=== PATIENT | male | born 1990 | race American Indian/Alaskan Native ===

== ENCOUNTER 2016-09-26 22:29 | Emergency (ER) | payer MEDICAID ==
[2016-09-26 23:04] LABS: Bilirubin,Urine NEG (Negative)
[2016-09-26 23:05] LABS: Blood,Urine SM (Negative); Ketones,Urine TR mg/dL (Negative); Leukocyte Esterase,Urine NEG (Negative); Mucus,Urine FEW /HPF; Nitrite,Urine NEG (Negative); Protein,Urine <15 mg/dL mg/dL (Negative)
--- NOTE | 2016-09-26 23:21 | Ultrasound Report ---
FINAL REPORT PROCEDURE: US TESTICULAR DOPPLER COMP TECHNIQUE: Real-time perez-scale and color flow Doppler sonography in multiple planes of the scrotum, testicles, and epididymes was performed. Velocity spectral waveform analysis Doppler imaging of the arterial inflow and venous outflow of the testicles was performed with image documentation. CPT 69413 and 36336 HISTORY: testicular pain COMPARISON: May 18, 2016 FINDINGS: RIGHT TESTICLE: Size: 3.9 x 2.5 x 1.7 cm . Appearance: Normal size and echotexture . Arterial blood flow: Normal spectral waveforms, flow velocities and color flow images.. Venous blood flow: Normal spectral waveforms and color flow images. Right epididymis: Normal size and echotexture . Hydrocele: None . LEFT TESTICLE Size: 3.9 x 2.7 x 1.7 cm . Appearance: Normal size and echotexture . Arterial blood flow: Normal spectral waveforms, flow velocities and color flow images.. Venous blood flow: Normal spectral waveforms and color flow images. Leftepididymis: Normal size and echotexture . Hydrocele: None . IMPRESSION: Normal Examination
--- NOTE | 2016-09-27 02:30 | Emergency Department Report ---
ED Male HPI - General Chief complaint: Urogenital-Male Stated complaint: TESTICULAR PAIN/INJURY Time Seen by Provider: 09/27/16 01:43 Source: patient Mode of arrival: Ambulatory Limitations: No Limitations - History of Present Illness Initial comments: 26 y/o male complain of itching and burning to penis .pt state he has a rash on his penis .pt denies any testicular pain.pt denies any difficulty urinate . Onset/Timin -: days(s) Location: penis Radiation: none Severity: mild Severity scale (0 -10): 4 Quality: burning Improves with: none Worsens with: none - Related Data Previous Rx's Medication Instructions Recorded Last Taken Type Doxycycline Hyclate [Doxycycline 100 mg PO Q12HR #14 tab 05/08/16 Unknown Rx Hyclate TAB] HYDROcodone/APAP 7.5-325 [[place] 1 each PO Q8HR PRN #10 tablet 05/08/16 Unknown Rx 7.5-325 mg TAB] traMADol [Ultram 50 MG tab] 50 mg PO Q6HR PRN #10 tablet 05/18/16 Unknown Rx Nystatin Oint [Mycostatin Oint] 1 applicatio TP BID #1 tube 09/27/16 Unknown Rx Allergies Allergy/AdvReac Type Severity Reaction Status Date / Time No Known Allergies Allergy Verified 03/14/14 14:59 ED Review of Systems ROS: Stated complaint: TESTICULAR PAIN/INJURY Other details as noted in HPI Constitutional: denies: chills, fever Eyes: denies: eye pain, eye discharge, vision change ENT: denies: ear pain, throat pain Respiratory: denies: cough, shortness of breath, wheezing Cardiovascular: denies: chest pain, palpitations Endocrine: no symptoms reported Gastrointestinal: denies: abdominal pain, nausea, diarrhea Genitourinary: other (penile pain). denies: urgency, dysuria Musculoskeletal: denies: back pain, joint swelling, arthralgia Skin: rash. denies: lesions Neurological: denies: headache, weakness, paresthesias Psychiatric: denies: anxiety, depression Hematological/Lymphatic: denies: easy bleeding, easy bruising ED Past Medical Hx - Social History Smoking Status: Current Every Day Smoker Substance Use Type: None - Medications Home Medications: Home Medications Medication Instructions Recorded Confirmed Last Taken Type Doxycycline Hyclate [Doxycycline 100 mg PO Q12HR #14 tab 05/08/16 Unknown Rx Hyclate TAB] HYDROcodone/APAP 7.5-325 [[place] 1 each PO Q8HR PRN #10 tablet 05/08/16 Unknown Rx 7.5-325 mg TAB] traMADol [Ultram 50 MG tab] 50 mg PO Q6HR PRN #10 tablet 05/18/16 Unknown Rx Nystatin Oint [Mycostatin Oint] 1 applicatio TP BID #1 tube 09/27/16 Unknown Rx ED Physical Exam - General Limitations: No Limitations General appearance: alert, in no apparent distress - Head Head exam: Present: atraumatic, normocephalic - Eye Eye exam: Present: normal appearance - ENT ENT exam: Present: mucous membranes moist - Neck Neck exam: Present: normal inspection - Respiratory Respiratory exam: Present: normal lung sounds bilaterally. Absent: respiratory distress - Cardiovascular Cardiovascular Exam: Present: regular rate, normal rhythm. Absent: systolic murmur, diastolic murmur, rubs, gallop - GI/Abdominal GI/Abdominal exam: Present: soft, normal bowel sounds - Rectal Rectal exam: Present: deferred - exam: Present: circumcision. Absent: testicular tenderness, urethral discharge, scrotal swelling, vertical testicular lie External exam: Present: erythema - Expanded Exam Expanded Male exam: Present: balanitis - Extremities Exam Extremities exam: Present: normal inspection, full ROM - Back Exam Back exam: Present: normal inspection - Neurological Exam Neurological exam: Present: alert, oriented X3 - Psychiatric Psychiatric exam: Present: normal affect, normal mood - Skin Skin exam: Present: warm, dry, intact, normal color. Absent: rash ED Course Vital Signs 09/26/16 22:34 Temperature 97.4 F L Pulse Rate 77 Respiratory 18 Rate Blood Pressure 139/80 O2 Sat by Pulse 99 Oximetry ED Medical Decision Making - Medical Decision Making balanitis negative ultrasound of testicle Critical care attestation.: If time is entered above; I have spent that time in minutes in the direct care of this critically ill patient, excluding procedure time. ED Disposition Clinical Impression: Balanitis Disposition: DISCHARGED TO HOME OR SELFCARE Is pt being admited?: No Does the pt Need Aspirin: No Condition: Stable Instructions: Balanitis (ED) Additional Instructions: keep penis clean and dry Prescriptions: Nystatin Oint [Mycostatin Oint] 1 applicatio TP BID #1 tube Referrals: PRIMARY CARE, [Primary Care Provider] - 3-5 Days [facility] [Outside] - 3-5 Days Forms: Work/School Release Form(ED) Time of Disposition: 02:36
[2016-09-27 02:51] VITALS: BP 132/77
== END 2016-09-27 02:56 | disposition home or self-care (01) ==
LOC: ED 22:29
DX: N48.1 Balanitis (principal); F17.200 Nicotine dependence, unspecified, uncomplicated
CPT/HCPCS: 81001; 93975

== ENCOUNTER 2016-10-29 14:22 | Emergency (ER) | payer MEDICAID ==
--- NOTE | 2016-10-29 17:01 | Emergency Department Report ---
ED Male HPI - General Chief complaint: Urogenital-Male Stated complaint: URINATION PENIS Time Seen by Provider: 10/29/16 16:58 Source: patient, family Mode of arrival: Ambulatory Limitations: No Limitations - History of Present Illness Initial comments: Patient here reports that he has pain to the shaft of his penis for couple days. He reports painful urination. She reports to us in triage that he had discharged denies any penile discharge to me. Patient denies any rash. Denies any testicular pain. Denies any abdominal or back pain. Denies any nausea vomiting. Sent said that he is not concerned about STD. Having a lot of sex. Denies any blood in his urine. Denies any abdominal or back pain. MD Complaint: other (penis pain) Onset/Timin -: days(s) Location: penis Radiation: none Severity: moderate Severity scale (0 -10): 7 Quality: burning Improves with: rest Worsens with: palpation, movement dysuria, other (sore to shaft of penis). denies: discharge, swelling, mass, rash, urinary retention, blood in urine, fever, nausea/vomiting, incontinence - Related Data Sexually active: Yes (reports he always uses condoms) Previous Rx's Medication Instructions Recorded Last Taken Type HYDROcodone/APAP 7.5-325 [[place] 1 each PO Q8HR PRN #10 tablet 05/08/16 Unknown Rx 7.5-325 mg TAB] Nystatin Oint [Mycostatin Oint] 1 applicatio TP BID #1 tube 09/27/16 Unknown Rx Doxycycline Hyclate [Doxycycline 100 mg PO Q12HR #14 tab 10/29/16 Unknown Rx Hyclate TAB] traMADol [Ultram 50 MG tab] 50 mg PO Q6HR PRN #10 tablet 10/29/16 Unknown Rx Allergies Allergy/AdvReac Type Severity Reaction Status Date / Time No Known Allergies Allergy Verified 03/14/14 14:59 ED Review of Systems ROS: Stated complaint: URINATION PENIS Other details as noted in HPI Comment: All other systems reviewed and negative Constitutional: denies: chills, fever ENT: denies: throat pain Respiratory: no symptoms reported Cardiovascular: denies: chest pain, palpitations, edema, syncope Gastrointestinal: denies: abdominal pain, nausea, vomiting Musculoskeletal: denies: back pain, arthralgia Skin: other (reports last penis) Neurological: denies: headache, weakness, numbness, paresthesias, abnormal gait , vertigo ED Past Medical Hx - Past Medical History Previous Medical History?: No - Surgical History Past Surgical History?: No - Family History Family history: no significant - Social History Smoking Status: Current Every Day Smoker Substance Use Type: Alcohol - Medications Home Medications: Home Medications Medication Instructions Recorded Confirmed Last Taken Type HYDROcodone/APAP 7.5-325 [[place] 1 each PO Q8HR PRN #10 tablet 05/08/16 Unknown Rx 7.5-325 mg TAB] Nystatin Oint [Mycostatin Oint] 1 applicatio TP BID #1 tube 09/27/16 Unknown Rx Doxycycline Hyclate [Doxycycline 100 mg PO Q12HR #14 tab 10/29/16 Unknown Rx Hyclate TAB] traMADol [Ultram 50 MG tab] 50 mg PO Q6HR PRN #10 tablet 10/29/16 Unknown Rx ED Physical Exam - General Limitations: No Limitations General appearance: alert, in no apparent distress - Head Head exam: Present: atraumatic, normocephalic, normal inspection - ENT ENT exam: Present: normal exam, normal orophraynx, mucous membranes moist, TM's normal bilaterally, normal external ear exam - Neck Neck exam: Present: normal inspection, full ROM. Absent: tenderness, meningismus, lymphadenopathy - Respiratory Respiratory exam: Present: normal lung sounds bilaterally. Absent: respiratory distress, chest wall tenderness - Cardiovascular Cardiovascular Exam: Present: regular rate, normal rhythm, normal heart sounds - GI/Abdominal GI/Abdominal exam: Present: soft, normal bowel sounds. Absent: distended, tenderness, guarding, rebound, rigid - exam: Present: normal inspection, circumcision. Absent: testicular tenderness, urethral discharge, scrotal swelling, vertical testicular lie External exam: Present: erythema (noted erythema area to posterior mid shaft of penis. Patient blood abrasion.). Absent: swelling, lesions, lacerations, ecchymosis, bleeding - Extremities Exam Extremities exam: Present: normal inspection, full ROM, normal capillary refill. Absent: tenderness, pedal edema, joint swelling, calf tenderness - Back Exam Back exam: Present: normal inspection, full ROM. Absent: tenderness, CVA tenderness (R), CVA tenderness (L), muscle spasm, paraspinal tenderness, vertebral tenderness, rash noted - Neurological Exam Neurological exam: Present: alert, oriented X3, normal gait, reflexes normal. Absent: motor sensory deficit - Psychiatric Psychiatric exam: Present: normal affect, normal mood - Skin Skin exam: Present: warm, dry, intact, normal color, abrasion (small abrasion noted of the posterior shaft of mid penis.) ED Course Vital Signs 10/29/16 14:35 Temperature 99.0 F Pulse Rate 72 Respiratory 16 Rate Blood Pressure 112/67 O2 Sat by Pulse 100 Oximetry - Reevaluation(s) Reevaluation #1: 10/29/16 18:14 Patient says his tetanus shot is up-to-date less than 5 years. ED Medical Decision Making - Lab Data Lab Results 10/29/16 Range/Units 17:27 Urine Color Straw (Yellow) Urine Turbidity Clear (Clear) Urine pH 6.0 (5.0-7.0) Ur Specific [place] 1.010 (1.003-1.030) Urine Protein <15 mg/dl (Negative) mg/dL Urine Glucose (UA) Neg (Negative) mg/dL Urine Ketones Neg (Negative) mg/dL Urine Blood Neg (Negative) Urine Nitrite Neg (Negative) Urine Bilirubin Neg (Negative) Urine Urobilinogen < 2.0 (<2.0) mg/dL Ur Leukocyte Esterase Neg (Negative) Urine WBC (Auto) < 1.0 (0.0-6.0) /HPF Urine RBC (Auto) < 1.0 (0.0-6.0) /HPF Culture pending - Medical Decision Making ED course: I explained to patient that he has an abrasion to his penis and he' ll need to keep area clean and dry. Patient did not want any STD treatment or testing because He said he does not have any STDs. Urinalysis negative for bacteria. Cultures pending. Patient discharged home with prescription for Keflex and to follow up with his primary care physician in 3 days. Patient does not have a primary care physician so I told him he needs to follow[facility] with [facility]. Critical care attestation.: If time is entered above; I have spent that time in minutes in the direct care of this critically ill patient, excluding procedure time. ED Disposition Clinical Impression: Penile abrasion Qualifiers: Encounter type: initial encounter Qualified Code(s): S30.812A - Abrasion of penis, initial encounter Disposition: DISCHARGED TO HOME OR SELFCARE Is pt being admited?: No Does the pt Need Aspirin: No Condition: Stable Instructions: Abrasion (ED) Additional Instructions: Please do not have any sex until abrasion on penis is healed Prescriptions: Doxycycline Hyclate [Doxycycline Hyclate TAB] 100 mg PO Q12HR #14 tab traMADol [Ultram 50 MG tab] 50 mg PO Q6HR PRN #10 tablet PRN Reason: Pain Referrals: [facility] [Outside] - 3-5 Days Forms: Work/School Release Form(ED)
[2016-10-29 17:37] LABS: Bilirubin,Urine NEG (Negative); Blood,Urine NEG (Negative); Ketones,Urine NEG (Negative); Leukocyte Esterase,Urine NEG (Negative); Nitrite,Urine NEG (Negative); Protein,Urine <15 mg/dL mg/dL (Negative); RBC,Urine < 1.0 /HPF (0.0-6.0); Urobilinogen,Urine < 2.0 mg/dL (<2.0); WBC,Urine < 1.0 /HPF (0.0-6.0)
[2016-10-29 18:40] VITALS: BP 118/70
== END 2016-10-29 18:39 | disposition home or self-care (01) ==
LOC: ED 14:22
DX: S30.812A Abrasion of penis, initial encounter (principal); F17.200 Nicotine dependence, unspecified, uncomplicated; X58.XXXA Exposure to other specified factors, initial encounter; Y93.89 Activity, other specified; Y99.9 Unspecified external cause status; Y92.89 Other specified places as the place of occurrence of the external cause
CPT/HCPCS: 81001; 87086; 99283

== ENCOUNTER 2017-01-08 00:41 | Emergency (ER) | payer MEDICAID ==
[2017-01-08 01:01] VITALS: BP 133/78
[2017-01-08] MEDS ORDERED: MOTRIN PO ONE (04:11)
--- NOTE | 2017-01-08 04:44 | XRay Report ---
FINAL REPORT PROCEDURE: XR FEMUR 2 LT TECHNIQUE: LEFT femur radiographs, AP and lateral views. HISTORY: left thigh discomfort possible needle stick injury COMPARISON: No prior studies are available for comparison. FINDINGS: Fracture (s) and/or Dislocation(s): None . Joint space(s): Normal . Soft tissues: Normal . Bone mineralization: Normal . Foreign bodies: None . IMPRESSION: Normal Examination
--- NOTE | 2017-01-08 04:53 | Emergency Department Report ---
ED Extremity Problem HPI - General Chief complaint: Extremity Problem,Nontraumatic Stated complaint: POSSIABLE NEEDLE STICK IN LEG Time Seen by Provider: 01/08/17 03:59 Source: patient Mode of arrival: Ambulatory Limitations: No Limitations - History of Present Illness Initial comments: 26-year-old male past medical history? Psych disorder presents with complaint of left upper thigh pain. Patient states that he was sleeping in bed with a ex- girlfriend and he may have been stuck by an insulin needle in his left upper thigh 5 days ago. Patient denies any fevers no chills no difficulty ambulating states that he felt a prick sensation and left upper thigh and was concerned that he had been struck by one of her insulin needles. Patient denies actually seeing a needle in the bed. Also states that he felt very sore after playing soccer and that his thighs were feeling sore. Patient is awake and alert but has slightly flat affect. I asked patient if he is following up with a primary doctor or a psychiatrist and he denies. Patient is calm but has somewhat strange affect. Patient denies any auditory or visual hallucinations otherwise. Patient denies any drug use. Patient showing me the skin on his left thigh. No visible overt signs of infection or trauma. Patient is fully ambulatory without assistance. When asked the patient if he knows anything about the hepatitis or HIV status of the person who may have been involved with needlestick patient states that he is not aware. Patient denies any other symptoms is awake alert and oriented 3 MD Complaint: extremity pain Onset/Timin Location: left, lower extremity History of Same: No -: Yes myalgia Severity scale (0 -10): 2 Consistency: intermittent Improves with: nothing Worsens with: nothing Associated Symptoms: denies other symptoms - Related Data Previous Rx's Medication Instructions Recorded Last Taken Type Ibuprofen [Motrin] 400 mg PO Q8H PRN #25 tablet 01/08/17 Unknown Rx Allergies Allergy/AdvReac Type Severity Reaction Status Date / Time No Known Allergies Allergy Verified 03/14/14 14:59 ED Review of Systems ROS: Stated complaint: POSSIABLE NEEDLE STICK IN LEG Other details as noted in HPI Constitutional: denies: chills, fever Eyes: denies: eye pain, eye discharge, vision change ENT: denies: ear pain, throat pain Respiratory: denies: cough, shortness of breath, wheezing Cardiovascular: denies: chest pain, palpitations Endocrine: no symptoms reported Gastrointestinal: denies: abdominal pain, nausea, diarrhea Genitourinary: denies: urgency, dysuria Musculoskeletal: as per HPI. denies: back pain, joint swelling, arthralgia Skin: denies: rash, lesions Neurological: denies: headache, weakness, paresthesias Psychiatric: denies: anxiety, depression Hematological/Lymphatic: denies: easy bleeding, easy bruising ED Past Medical Hx - Past Medical History Previous Medical History?: No - Surgical History Past Surgical History?: No - Social History Smoking Status: Never Smoker Substance Use Type: Alcohol - Medications Home Medications: Home Medications Medication Instructions Recorded Confirmed Last Taken Type Ibuprofen [Motrin] 400 mg PO Q8H PRN #25 tablet 01/08/17 Unknown Rx ED Physical Exam - General Limitations: No Limitations General appearance: alert, in no apparent distress - Head Head exam: Present: atraumatic, normocephalic - Eye Eye exam: Present: normal appearance - ENT ENT exam: Present: mucous membranes moist - Neck Neck exam: Present: normal inspection - Respiratory Respiratory exam: Present: normal lung sounds bilaterally. Absent: respiratory distress - Cardiovascular Cardiovascular Exam: Present: regular rate, normal rhythm. Absent: systolic murmur, diastolic murmur, rubs, gallop - GI/Abdominal GI/Abdominal exam: Present: soft, normal bowel sounds - Rectal Rectal exam: Present: deferred - Extremities Exam Extremities exam: Present: normal inspection - Expanded Lower Extremity Exam Left Hip exam: Present: normal inspection, full ROM Upper Leg exam: Present: normal inspection (no abrasions no puncture wounds no lacerations no bruising no signs of acute trauma to left upper thigh region. Tissue is soft palpation overlying left thigh anteriorly and laterally and medially. No signs of induration or infection) Knee exam: Present: normal inspection, full ROM Lower Leg exam: Present: normal inspection, full ROM Ankle exam: Present: normal inspection, full ROM Foot/Toe exam: Present: normal inspection, full ROM Gait: Positive: observed and normal 1 - Patient indicating slight discomfort here but there are no abnormalities on clinical exam - Back Exam Back exam: Present: normal inspection - Neurological Exam Neurological exam: Present: alert, oriented X3, CN II-XII intact, normal gait - Psychiatric Psychiatric exam: Present: flat affect (patient has slightly flat and strange affect on exam) - Skin Skin exam: Present: warm, dry, intact, normal color. Absent: rash ED Course Vital Signs 01/08/17 00:57 Temperature 98.5 F Pulse Rate 69 Respiratory 18 Rate Blood Pressure 133/78 O2 Sat by Pulse 99 Oximetry ED Medical Decision Making - Medical Decision Making A/P: Left side pain, possible tactile hallucination, possible needle stick injury 1-I discussed likelihood of actual needle stick injury with the patient. Patient is unsure if he was actually stuck by a needle or if he just feels soreness in his left upper thigh from playing soccer. Patient has no visible signs of trauma to the left upper thigh region no puncture wounds no abrasions or lacerations no ecchymosis. I explained to patient that if he is truly concerned we can follow a needle stick protocol obtained lab work and started him prophylactically on post exposure prophylactic medicine for HIV. Patient stated he was not interested in doing this just wanted to know if he has a needle stuck in the tissue in his left upper thigh region. I explained to patient that clinically he has no signs of trauma. X-ray shows no foreign body. I explained to patient that with isolated needle stick he has extremely low probability of actually acquiring a communicable disease as per medical literature [email or web address]?source=search_result&search= needle%20stick%20injury&selectedTitle=3~47. I explained to pt that without PeP there is a minimal but possible risk of developing HIV. pt stated he understood what I explained to him but does not wish to have testing or pep at this time. 2-patient is awake alert and oriented nonviable and denies any intent to harm himself or anyone else. I am however suspicious the patient may have underlying psych disorder with possible tactile hallucination this is documented in his medical history as well. I offered the patient to speak to a psych counselor in the morning the patient states that he would rather not at this time. Patient is not overtly psychotic and is cooperative and calm and nonviolent. Denies any suicidal or homicidal ideation. 3-Motrin when necessary for pain. Patient elected to not use postexposure prophylaxis. I provided him with information for health department in the event that he changes his mind. It has been nearly 5 days since the initial supposed needle stick injury. 4- tetanus updated today 5- primary care follow up Critical care attestation.: If time is entered above; I have spent that time in minutes in the direct care of this critically ill patient, excluding procedure time. ED Disposition Clinical Impression: Left thigh pain Disposition: DISCHARGED TO HOME OR SELFCARE Is pt being admited?: No Does the pt Need Aspirin: No Condition: Stable Instructions: Musculoskeletal Pain (ED) Prescriptions: Ibuprofen [Motrin] 400 mg PO Q8H PRN #25 tablet PRN Reason: Pain Referrals: [facility] [Outside] - 3-5 Days [facility] [Outside] - 3-5 Days [facility] [Outside] - 3-5 Days [facility] [Outside] - 3-5 Days [facility] [Outside] - 3[facility]5 Days [facility] [Outside] - 3-5 Days Time of Disposition: 05:04
[2017-01-08] MEDS ORDERED: BOOSTRIX IM ONE (04:57)
== END 2017-01-08 05:21 | disposition home or self-care (01) ==
LOC: ED 00:41
DX: M79.652 Pain in left thigh (principal)
CPT/HCPCS: 90471; 90715

== ENCOUNTER 2017-01-14 03:44 | Emergency (ER) | payer MEDICAID ==
[2017-01-14 04:28] LABS: Basophils % (Auto) 0.2 % (0.0-1.8); Eosinophils % (Auto) 3.4 % (0.0-4.3); Hematocrit 41.2 % (35.5-45.6); Hemoglobin 13.3 gm/dl (11.8-15.2); Mean Corpuscular HGB Conc 32 % (32-34); Mean Corpuscular Hemoglobin 30 pg (28-32); Mean Corpuscular Volume 92 fl (84-94); Platelet Count 282 K/mm3 (140-440); Red Cell Distribution Width 12.2 % (13.2-15.2); White Blood Count 5.9 K/mm3 (4.5-11.0)
[2017-01-14 04:47] LABS: Anion Gap 15 mmol/L; Blood Urea Nitrogen 10 mg/dL (9-20); Calcium 8.9 mg/dL (8.4-10.2); Carbon Dioxide 25 mmol/L (22-30); Chloride 107.8 mmol/L (98-107); Glucose 123 mg/dL (75-100); Potassium 3.5 mmol/L (3.6-5.0); Sodium 144 mmol/L (137-145)
[2017-01-14 04:52] LABS: Bilirubin,Urine NEG (Negative); Blood,Urine SM (Negative); Ketones,Urine NEG (Negative); Leukocyte Esterase,Urine TR (Negative); Mucus,Urine 1+ /HPF; Nitrite,Urine NEG (Negative)
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
[2017-01-14 14:42] VITALS: BP 116/61
== END 2017-01-14 13:58 | disposition home or self-care (01) ==
LOC: ED 03:44
DX: N39.0 Urinary tract infection, site not specified (principal); M54.6 Pain in thoracic spine; F17.200 Nicotine dependence, unspecified, uncomplicated
CPT/HCPCS: 36415; 80048; 81001; 84484; 85025; 93005; 93010; 99284

== ENCOUNTER 2017-03-15 02:15 | Emergency (ER) | payer MEDICAID ==
[2017-03-15 06:06] LABS: Bilirubin,Urine NEG (Negative); Blood,Urine MOD (Negative); Ketones,Urine NEG (Negative); Leukocyte Esterase,Urine NEG (Negative); Mucus,Urine FEW /HPF; Nitrite,Urine NEG (Negative); Protein,Urine <15 mg/dL mg/dL (Negative); Urobilinogen,Urine < 2.0 mg/dL (<2.0)
--- NOTE | 2017-03-15 07:48 | Emergency Department Report ---
ED General Adult HPI - General Chief complaint: Urogenital-Male Stated complaint: POSS SPIDER BITE Time Seen by Provider: 03/15/17 07:24 Source: patient, old records reviewed Mode of arrival: Ambulatory Limitations: No Limitations - History of Present Illness Initial comments: PT c/o R hand pain x " a couple of days" PT states he was outside and walking home when something landed on him and bit him. PT states that he thinks it was a spider. PT also c/o penis pain. PT states he has had the pain "for a while" and estimates it has been on going for a year. PT denies testicle pain and swelling but does report a testicle injury 1 year ago. PT states he was seen about after that injury. PT states the pain after that injury resolved. PT denies penile drainage. PT denies inserting anything into the penis. PT reports that recently he woke up and had "two holes" in his penis. Pt's td vaccine is UTD Complaint: pain -: Gradual, days(s) (of R hand pain ), year(s) (1 year of penile pain ) Location: genitals, right, upper extremity Severity scale (0 -10): 9 Quality: stabbing, other (throbbing ) Consistency: constant Improves with: none Worsens with: none Associated Symptoms: denies: fever/chills, nausea/vomiting, rash, shortness of breath, syncope Treatments Prior to Arrival: none - Related Data Previous Rx's Medication Instructions Recorded Last Taken Type Ibuprofen [Motrin] 400 mg PO Q8H PRN #25 tablet 01/08/17 01/13/17 Rx Sulfamethoxazole/Trimethoprim 1 each PO BID #7 tablet 01/14/17 Unknown Rx [Bactrim DS TAB] Allergies Allergy/AdvReac Type Severity Reaction Status Date / Time No Known Allergies Allergy Verified 03/14/14 14:59 ED Review of Systems ROS: Stated complaint: POSS SPIDER BITE Other details as noted in HPI Comment: All other systems reviewed and negative Constitutional: denies: fever Respiratory: denies: cough, shortness of breath, SOB with exertion, SOB at rest Cardiovascular: denies: chest pain, syncope Gastrointestinal: denies: abdominal pain, nausea, vomiting Genitourinary: dysuria. denies: hematuria, discharge, testicular pain, testicular mass Musculoskeletal: back pain (pt states he had back pain a few days ago and he thinks it was from lifting at work ) Skin: as per HPI (two holes in penis ) ED Past Medical Hx - Past Medical History Previous Medical History?: No - Surgical History Past Surgical History?: No - Social History Smoking Status: Current Every Day Smoker Substance Use Type: Alcohol - Medications Home Medications: Home Medications Medication Instructions Recorded Confirmed Last Taken Type Ibuprofen [Motrin] 400 mg PO Q8H PRN #25 tablet 01/08/17 01/14/17 01/13/17 Rx Sulfamethoxazole/Trimethoprim 1 each PO BID #7 tablet 01/14/17 Unknown Rx [Bactrim DS TAB] ED Physical Exam - General Limitations: No Limitations General appearance: alert, in no apparent distress - Head Head exam: Present: atraumatic, normocephalic, normal inspection - Eye Eye exam: Present: normal appearance, PERRL, EOMI. Absent: conjunctival injection - ENT ENT exam: Present: normal exam, mucous membranes moist, TM's normal bilaterally , normal external ear exam - Neck Neck exam: Present: normal inspection, full ROM - Respiratory Respiratory exam: Present: normal lung sounds bilaterally. Absent: respiratory distress, chest wall tenderness - Cardiovascular Cardiovascular Exam: Present: regular rate, normal rhythm, normal heart sounds - GI/Abdominal GI/Abdominal exam: Present: soft, normal bowel sounds. Absent: distended, tenderness, guarding, rebound - Rectal Rectal exam: Present: deferred - exam: Present: other (PT attempted to show me where the "holes" in his penis were, PT points to the underside of his shaft. no holes noted, exam is limited to the fact that pt is cover the head of his penis.). Absent: urethral discharge, scrotal swelling - Extremities Exam Extremities exam: Present: normal inspection, full ROM - Expanded Upper Extremity Exam Right General: Present: normal inspection Hand Wrist exam: Present: normal inspection, full ROM, other (no abscess, cellulitis, or signs of local reaction from a bite noted ). Absent: tenderness , swelling, abrasion, laceration, ecchymosis, deformity, erythema - Back Exam Back exam: Present: normal inspection, full ROM. Absent: tenderness, CVA tenderness (R), CVA tenderness (L), paraspinal tenderness, vertebral tenderness - Neurological Exam Neurological exam: Present: alert, oriented X3, normal gait - Psychiatric Psychiatric exam: Present: flat affect - Skin Skin exam: Present: warm, dry, intact, normal color. Absent: vesicles ED Course Vital Signs 03/15/17 02:54 Temperature 98.6 F Pulse Rate 67 Respiratory 18 Rate Blood Pressure 108/67 Blood Pressure 108/67 [Left] O2 Sat by Pulse 100 Oximetry - Reevaluation(s) Reevaluation #1: 03/15/17 09:[address] scan results and need to follow up with Urology. PT has no questions at this time. - Pulse Oximetry Interpretation Digit-Finger Initial Pulse Oximetry Readin Actions Taken: none ED Medical Decision Making - Lab Data Result diagrams: 03/15/17 08:03 03/15/17 08:03 - Radiology Data Radiology results: report reviewed CT abd/ pelvis - 7mm stone in the L kidney and 2 mm stone in the R kidney. No hydronephrosis - Differential Diagnosis STD, injury, renal colic, spider bite Critical Care Time: No Critical care attestation.: If time is entered above; I have spent that time in minutes in the direct care of this critically ill patient, excluding procedure time. ED Disposition Clinical Impression: Penile pain, chronic, Hematuria, Right hand pain Disposition: -01 TO HOME OR SELFCARE Is pt being admited?: No Does the pt Need Aspirin: No Condition: Stable Instructions: Acute Hematuria (ED), Insect Bite or Sting (ED) Additional Instructions: IF you develop back pain, nausea/ vomiting or fevers - return to the ED Follow up with PCP in 3-5 days Follow up with Urology for your chronic pain and hematuria. Referrals: PRIMARY MD LOUIS [Primary Care Provider] - 3-5 Days ANTONIETA PERAZA MD [Referring] - 3-5 Days ALYSE SHELL MD [Staff Physician] - 3-5 Days [facility] [Outside] - 3-5 Days [facility] [Outside] - 3-5 Days Time of Disposition: 09:43
[2017-03-15 08:14] LABS: Basophils % (Auto) 0.6 % (0.0-1.8); Eosinophils % (Auto) 4.3 % (0.0-4.3); Hematocrit 46.9 % (35.5-45.6); Hemoglobin 15.2 gm/dl (11.8-15.2); Mean Corpuscular HGB Conc 32 % (32-34); Mean Corpuscular Hemoglobin 30 pg (28-32); Mean Corpuscular Volume 93 fl (84-94); Platelet Count 267 K/mm3 (140-440); Red Blood Count 5.06 M/mm3 (3.65-5.03); Red Cell Distribution Width 12.4 % (13.2-15.2); White Blood Count 6.3 K/mm3 (4.5-11.0)
--- NOTE | 2017-03-15 08:24 | Cat Scan Report ---
CT OF THE ABDOMEN AND PELVIS WITHOUT CONTRAST HISTORY: Hematuria. TECHNIQUE: Helical CT without contrast. Sagittal and coronal reformatted images. FINDINGS: Severely limited exam with excessive breathing motion artifact by the patient. Both kidneys are normal size, contour and position. An approximate 7 mm renal stone is identified in the mid left kidney. An approximate 2 mm renal stone is identified in the mid right kidney. No obvious cystic disease, mass, or ureteral stones or hydronephrosis. The bladder is unremarkable. The unenhanced CT appearance of the liver, biliary system, pancreas, adrenal glands, spleen, bowel loops and appendix are within normal limits. No ascites, adenopathy or inflammatory changes are appreciated. The heart size is normal. The lung bases are clear. Normal bony structures. IMPRESSION: Severely limited exam. Bilateral solitary renal stones as described. No obvious ureteral stones or hydronephrosis.
[2017-03-15 08:31] LABS: Alanine Aminotransferase 63 units/L (7-56); Albumin 4.6 g/dL (3.9-5); Albumin/Globulin Ratio 1.4 %; Alkaline Phosphatase 76 units/L (35-129); Anion Gap 15 mmol/L; Blood Urea Nitrogen 12 mg/dL (9-20); Calcium 9.7 mg/dL (8.4-10.2); Carbon Dioxide 29 mmol/L (22-30); Chloride 103.3 mmol/L (98-107); Creatine Kinase 238 units/L (55-170); Glucose 86 mg/dL (75-100); Potassium 4.3 mmol/L (3.6-5.0); Sodium 143 mmol/L (137-145); Total Protein 7.8 g/dL (6.3-8.2)
[2017-03-15 09:58] VITALS: BP 119/54
== END 2017-03-15 09:57 | disposition home or self-care (01) ==
LOC: ED 02:15
DX: N48.89 Other specified disorders of penis (principal); M79.641 Pain in right hand; R31.9 Hematuria, unspecified; F17.200 Nicotine dependence, unspecified, uncomplicated
CPT/HCPCS: 36415; 74176; 80053; 81001; 82550; 85025; 87591

== ENCOUNTER 2017-09-12 17:14 | Emergency (ER) | payer MEDICAID ==
--- NOTE | 2017-09-12 19:43 | Ultrasound Report ---
FINAL REPORT EXAM: US TESTICULAR DOPPLER COMP HISTORY: testicular pain TECHNIQUE: Ultrasound scrotum with pulsed and color Doppler evaluation PRIORS: None. FINDINGS: Right testicle is 3.8 x 1.8 x 2.4 centimeters Left testicle is 4.0 x 1.9 x 2.4 centimeters Testicles demonstrate normal echogenicity. There is normal vascular flow on pulsed and color Doppler evaluation Small bilateral hydroceles are noted. No evidence for varicocele. No evidence for epididymal enlargement. IMPRESSION: Small bilateral hydroceles No evidence for testicular torsion
--- NOTE | 2017-09-13 06:30 | Emergency Department Report ---
ED General Adult HPI - General Chief complaint: Urogenital-Male Stated complaint: GLASS IN L HAND Time Seen by Provider: 09/13/17 06:21 Source: patient Mode of arrival: Ambulatory Limitations: No Limitations - History of Present Illness Initial comments: Patient is 26 years old male with no significant past medical history he came today stated that 2 days ago he fell through a window and came with injury to his right wrist and right forearm. He thinks that he had pieces of glass in his right arm he also sustained a 1 cm laceration to the right arm. Patient also stated that he hit his right testicle in complaining of right testicular pain. No active bleeding. No fever no nausea no vomiting no head injury and no other injuries. -: Sudden, days(s) Severity scale (0 -10): 7 - Related Data Previous Rx's Medication Instructions Recorded Last Taken Type Ibuprofen [Motrin] 600 mg PO Q8H PRN #15 tablet 03/15/17 Unknown Rx Allergies Allergy/AdvReac Type Severity Reaction Status Date / Time No Known Allergies Allergy Verified 09/12/17 18:20 ED Review of Systems ROS: Stated complaint: GLASS IN L HAND Other details as noted in HPI Comment: All other systems reviewed and negative Constitutional: denies: chills, diaphoresis Eyes: denies: eye discharge ENT: denies: throat pain Respiratory: denies: cough, orthopnea, shortness of breath Cardiovascular: denies: chest pain, palpitations, dyspnea on exertion Gastrointestinal: denies: abdominal pain, nausea, vomiting, diarrhea Genitourinary: testicular pain. denies: urgency, dysuria, frequency, hematuria , discharge, testicular mass Musculoskeletal: denies: back pain Neurological: denies: headache, weakness, numbness, paresthesias ED Past Medical Hx - Past Medical History Previous Medical History?: No - Surgical History Past Surgical History?: No - Social History Smoking Status: Current Every Day Smoker Substance Use Type: Alcohol - Medications Home Medications: Home Medications Medication Instructions Recorded Confirmed Last Taken Type Ibuprofen [Motrin] 600 mg PO Q8H PRN #15 tablet 03/15/17 Unknown Rx ED Physical Exam - General Limitations: No Limitations General appearance: alert, in no apparent distress - Head Head exam: Present: atraumatic, normocephalic, normal inspection - Eye Eye exam: Present: normal appearance, PERRL, EOMI Pupils: Present: normal accommodation - ENT ENT exam: Present: normal exam - Neck Neck exam: Present: normal inspection, full ROM. Absent: tenderness, meningismus, lymphadenopathy, thyromegaly - Respiratory Respiratory exam: Present: normal lung sounds bilaterally. Absent: respiratory distress, wheezes, rales, rhonchi, stridor, chest wall tenderness, accessory muscle use, decreased breath sounds, prolonged expiratory - Cardiovascular Cardiovascular Exam: Present: regular rate, normal rhythm, normal heart sounds - GI/Abdominal GI/Abdominal exam: Present: soft, normal bowel sounds. Absent: distended, tenderness, guarding, rebound, rigid, organomegaly, mass, bruit, pulsatile mass , hernia - exam: Present: normal inspection, testicular tenderness (mild testicular tenderness). Absent: urethral discharge, scrotal swelling, vertical testicular lie, circumcision, other External exam: Present: normal external exam. Absent: erythema, swelling, lesions, lacerations, ecchymosis, bleeding - Extremities Exam Extremities exam: Present: other (right upper extremity, right forearm show a 1 cm laceration with no active bleeding and is healing very well. Right wrist showed 2 puncture wound no clinical evidence of glasses that can be felt on palpation) - Back Exam Back exam: Present: normal inspection. Absent: CVA tenderness (R), CVA tenderness (L) - Neurological Exam Neurological exam: Present: alert, oriented X3, CN II-XII intact, normal gait - Skin Skin exam: Present: warm, dry, normal color ED Course Vital Signs 09/12/17 09/13/17 09/13/17 18:00 01:23 06:37 Temperature 98.6 F 98.4 F Pulse Rate 68 65 Respiratory 16 18 16 Rate Blood Pressure 120/50 129/52 O2 Sat by Pulse 98 96 99 Oximetry 09/13/17 06:53 Temperature Pulse Rate Respiratory Rate Blood Pressure O2 Sat by Pulse 95 Oximetry ED Medical Decision Making - Radiology Data Radiology results: report reviewed Referring Physician: DAR PERAZA Patient Name: OLEGARIO RODRIGUEZ Date of : 1990 Sex: Male Report Date: 2017-09-13 Report Status: Finalized Findings [facility] [address] [place] [address] XRay Report Signed Patient: OLEGARIO RODRIGUEZ MR#: [id number] : 1990 Acct:[id number] Age/Sex: 26 / M ADM Date: 09/12/17 Loc: ED Attending Dr: Ordering Physician: DAR PERAZA Date of Service: 09/13/17 Procedure(s): XR wrist 2V RT Accession Number(s): [id number] cc: DAR PERAZA Fluoro Time In Minutes: FINAL REPORT EXAM: XR WRIST 2V RT HISTORY: possible foreign body COMPARISONS: None. FINDINGS: Subcutaneous emphysema is present at the radial aspect of the carpus. No radiodense foreign body. No bone lesion, periosteal reaction, or fracture. No deformity or gross malalignment. IMPRESSION: No radiodense foreign body. Consider targeted ultrasound for further evaluation as warranted. Transcribed By: MB Dictated By: JF FITCH MD Electronically Authenticated By: JF FITCH MD Signed Date/Time: 09/13/17246 DD/ 6 TD/TT: 09/13/17246 Referring Physician: DAR PERAZA Patient Name: OLEGARIO RODRIGUEZ Date of : 1990 Sex: Male Report Date: 2017-09-13 Report Status: Finalized Findings [facility] [address] [place] [address] Ultrasound Report Signed Patient: OLEGARIO RODRIGUEZ MR#: [id number] : 1990 Acct:[id number] Age/Sex: 26 / M ADM Date: 09/12/17 Loc: ED Attending Dr: Ordering Physician: DAR PERAZA Date of Service: 09/13/17 Procedure(s): US extremity nonvascular RT Accession Number(s): [id number] cc: DAR PERAZA FINAL REPORT EXAM: US EXTREMITY NONVASCULAR RT HISTORY: right hand foreign body , fell through window 2 days ago COMPARISONS: None. FINDINGS: Targeted grayscale ultrasound evaluation of the right hand, forearm and elbow No deep or superficial soft tissue foreign bodies identified in the areas of interest subjacent to puncture wounds/lacerations in the right hand, 1st through 4th fingers, right wrist, forearm and elbow. IMPRESSION: No foreign bodies identified in areas of clinical interest. Repeat ultrasound may be helpful if there is nonhealing wound/drainage. Transcribed By: PREMA Dictated By: JF FITCH MD Electronically Authenticated By: JF FITCH MD Signed Date/Time: 09/13/17502 DD/ 2 TD/TT: 09/13/17502 Critical care attestation.: If time is entered above; I have spent that time in minutes in the direct care of this critically ill patient, excluding procedure time. ED Disposition Clinical Impression: Testicular pain, right, Injury of right hand Disposition: DC- TO HOME OR SELFCARE Is pt being admited?: No Condition: Stable Instructions: Hand Sprain (ED) Referrals: JF FLOR MD [Primary Care Provider] - 3-5 Days
--- NOTE | 2017-09-13 06:51 | XRay Report ---
FINAL REPORT EXAM: XR WRIST 2V RT HISTORY: possible foreign body COMPARISONS: None. FINDINGS: Subcutaneous emphysema is present at the radial aspect of the carpus. No radiodense foreign body. No bone lesion, periosteal reaction, or fracture. No deformity or gross malalignment. IMPRESSION: No radiodense foreign body. Consider targeted ultrasound for further evaluation as warranted.
[2017-09-13] MEDS ORDERED: TORADOL IM ONE (07:02)
--- NOTE | 2017-09-13 09:06 | Ultrasound Report ---
FINAL REPORT EXAM: US EXTREMITY NONVASCULAR RT HISTORY: right hand foreign body , fell through window 2 days ago COMPARISONS: None. FINDINGS: Targeted grayscale ultrasound evaluation of the right hand, forearm and elbow No deep or superficial soft tissue foreign bodies identified in the areas of interest subjacent to puncture wounds/lacerations in the right hand, 1st through 4th fingers, right wrist, forearm and elbow. IMPRESSION: No foreign bodies identified in areas of clinical interest. Repeat ultrasound may be helpful if there is nonhealing wound/drainage.
[2017-09-13 09:47] VITALS: BP 99/58
== END 2017-09-13 10:30 | disposition home or self-care (01) ==
LOC: ED 17:14
DX: S61.531A Puncture wound without foreign body of right wrist, initial encounter (principal); F17.200 Nicotine dependence, unspecified, uncomplicated; N50.811 Right testicular pain; W25.XXXA Contact with sharp glass, initial encounter; Y93.89 Activity, other specified; Y92.89 Other specified places as the place of occurrence of the external cause; Y99.8 Other external cause status
CPT/HCPCS: 73100; 76881; 93975; 96372; 99284; J1885

== ENCOUNTER 2017-12-20 16:30 | Emergency (ER) | payer MEDICAID ==
[2017-12-20 16:35] VITALS: BP 125/67
--- NOTE | 2017-12-20 22:12 | Emergency Department Report ---
ED Male HPI - General Chief complaint: Urogenital-Male Stated complaint: PAIN IN RIGHT TESTICLE Time Seen by Provider: 12/20/17 18:40 Source: patient Mode of arrival: Ambulatory Limitations: No Limitations - History of Present Illness Initial comments: This is a 27 y.o. male that presents with right testicular pain after sitting on a fence last week. He went to play basketball at a park and sat on a fence last Tuesday. States he started to have right testicle pain 2 days later. Admits to dysuria for 1 week. Denies swelling, redness, discharge, fever, and abdominal/low back pain. MD Complaint: testicle pain (right), dysuria -: week(s) (1) Location: right testicle Radiation: none Severity: moderate Severity scale (0 -10): 6 Quality: aching Consistency: constant Improves with: none Worsens with: palpation, movement trauma (sitting on a fence 1 week ago) dysuria. denies: discharge, swelling, mass, rash, urinary retention, blood in urine, fever, nausea/vomiting, incontinence - Related Data Sexually active: Yes Previous Rx's Medication Instructions Recorded Last Taken Type Ibuprofen [Motrin] 600 mg PO Q8H PRN #15 tablet 03/15/17 Unknown Rx Naproxen [Naprosyn] 500 mg PO BID #14 tablet 09/13/17 Unknown Rx Allergies Allergy/AdvReac Type Severity Reaction Status Date / Time No Known Allergies Allergy Verified 12/20/17 16:32 ED Review of Systems ROS: Stated complaint: PAIN IN RIGHT TESTICLE Other details as noted in HPI Constitutional: denies: chills, fever Respiratory: denies: cough, shortness of breath, wheezing Cardiovascular: denies: chest pain, palpitations Gastrointestinal: denies: abdominal pain, nausea, diarrhea Genitourinary: dysuria, testicular pain (right). denies: urgency Neurological: denies: headache, weakness, paresthesias Psychiatric: denies: anxiety, depression ED Past Medical Hx - Social History Smoking Status: Current Every Day Smoker Substance Use Type: Alcohol - Medications Home Medications: Home Medications Medication Instructions Recorded Confirmed Last Taken Type Ibuprofen [Motrin] 600 mg PO Q8H PRN #15 tablet 03/15/17 Unknown Rx Naproxen [Naprosyn] 500 mg PO BID #14 tablet 09/13/17 Unknown Rx ED Physical Exam - General Limitations: No Limitations General appearance: alert, in no apparent distress - Respiratory Respiratory exam: Present: normal lung sounds bilaterally. Absent: respiratory distress, wheezes, rales, rhonchi, stridor, decreased breath sounds - Cardiovascular Cardiovascular Exam: Present: regular rate, normal rhythm, normal heart sounds. Absent: systolic murmur, diastolic murmur, rubs, gallop - GI/Abdominal GI/Abdominal exam: Present: soft, normal bowel sounds. Absent: distended, tenderness, guarding, rebound, rigid, organomegaly, mass - exam: Present: testicular tenderness (right), circumcision. Absent: urethral discharge, scrotal swelling, vertical testicular lie External exam: Present: normal external exam. Absent: erythema, swelling, lesions, lacerations, ecchymosis, bleeding - Neurological Exam Neurological exam: Present: alert, oriented X3 - Psychiatric Psychiatric exam: Present: normal affect, normal mood - Skin Skin exam: Present: warm, dry, intact, normal color. Absent: rash ED Course Vital Signs 12/20/17 16:32 Temperature 97.9 F Pulse Rate 79 Respiratory 16 Rate Blood Pressure 125/67 O2 Sat by Pulse 98 Oximetry ED Medical Decision Making - Radiology Data Radiology results: report reviewed Testicular US: No evidence of testicular torsion, neoplasia, or hydrocele. Two small calcifications within the right testicle. - Medical Decision Making This is a 27 y.o. male that presents with right testicular pain for 1 week. Patient was examined by me. Vitals stable. Obtained UA and GC. Discussed UA results with patient and GC pending. US of testicle obtained. No evidence of testicular torsion, neoplasia, or hydrocele. Two small calcifications within the right testicle. Given azithromycin 1 g po and rocephin 250 mg IM once in ER for empirical treatment of STD exposure per patient request. Discharged home in stable condition. Discussed prevention options. F/U with PCP or Urologist if symptoms persist. Critical care attestation.: If time is entered above; I have spent that time in minutes in the direct care of this critically ill patient, excluding procedure time. ED Disposition Clinical Impression: Right testicular pain, STD exposure Disposition: - TO HOME OR SELFCARE Is pt being admited?: No Does the pt Need Aspirin: No Condition: Stable Instructions: Testicle Pain (ED) Additional Instructions: Follow up with Primary Care Provider or Urology in 2-3 days if symptoms persist. Referrals: [facility] [Outside] - 3-5 Days [facility] [Outside] - 3-5 Days [facility] [Outside] - 3-5 Days [facility] [Provider Group] - 3-5 Days Time of Disposition: 00:45 Print Language: CHADIAN
[2017-12-20 23:41] LABS: Bilirubin,Urine NEG (Negative); Blood,Urine NEG (Negative); Color,Urine Yellow (Yellow); Mucus,Urine FEW /HPF; Protein,Urine <15 mg/dL mg/dL (Negative); RBC,Urine < 1.0 /HPF (0.0-6.0); Urobilinogen,Urine < 2.0 mg/dL (<2.0); WBC,Urine < 1.0 /HPF (0.0-6.0)
--- NOTE | 2017-12-21 00:34 | Ultrasound Report ---
FINAL REPORT EXAM: US TESTICULAR DOPPLER COMP HISTORY: right testicular pain TECHNIQUE: Routine sonographic evaluation was obtained of the scrotum including Doppler interrogation of the testicles. Correlation is made to the study of 09/12/2017. FINDINGS: The right testicle is normal size contour and blood flow measuring 3.8 cm x 2.2 cm x 2.5 cm. There are several calcifications in right testicle. The right epididymis is normal size and echotexture. There is no evidence of hydrocele. The left testicle is normal size contour, blood flow and echotexture measuring 3.5 cm x 2.5 cm x 2.4 cm. The left epididymis appears normal. There is no evidence of hydrocele. There is no evidence of varicocele bilaterally. IMPRESSION: No evidence of testicular torsion, neoplasia, or hydrocele. Two small calcifications within the right testicle.
[2017-12-21] MEDS ORDERED: ROCEPHIN IM ONE (00:46)
[2017-12-21] MEDS ORDERED: XYLOCAINE 1% MPF 5 mL INFILTRATI ONE (00:46)
[2017-12-21] MEDS ORDERED: ZITHROMAX PO ONE (00:46)
== END 2017-12-21 01:30 | disposition home or self-care (01) ==
LOC: ED 16:30
DX: N50.811 Right testicular pain (principal); Z20.2 Contact with and (suspected) exposure to infections with a predominantly sexual mode of transmission; F17.200 Nicotine dependence, unspecified, uncomplicated
CPT/HCPCS: 81001; 93975; 96372; 99284; J0696

== ENCOUNTER 2018-11-30 15:55 | Emergency (ER) | payer MEDICAID ==
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
== END 2018-11-30 18:32 | disposition left against medical advice (07) ==
LOC: ED 15:55

== ENCOUNTER 2019-01-23 23:05 | Emergency (ER) | payer MEDICAID ==
--- NOTE | 2019-01-24 01:31 | XRay Report ---
PROCEDURE: XR CHEST ROUTINE 2V TECHNIQUE: PA and lateral chest radiographs were obtained. HISTORY: chest pain COMPARISONS: None. FINDINGS: No infiltrate, pleural effusion, or pneumothorax seen. The cardiomediastinal silhouette is normal. IMPRESSION: Negative chest.. This document is electronically signed by Yordy Woo MD., Jan 24 2019 01:29:20 AM ET
--- NOTE | 2019-01-24 07:30 | Emergency Department Report ---
ED Extremity Problem HPI - General Chief complaint: Extremity Injury, Upper Stated complaint: RIGHT ARM PAIN Time Seen by Provider: 01/24/19 07:22 Source: patient, EMS Mode of arrival: Ambulatory Limitations: No Limitations - History of Present Illness Initial comments: 28 y/o male comes in for left arm pain that started 2 days ago. 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 Patient has taking nothing for pain. Patient reports that he will have intermittent sharp pain with numbness at times. Patient report worst a little with some movments. Denies any swelling. No PMH, no meds and NKDA. MD Complaint: extremity pain -: days(s) (2) Location: left History of Same: No -: Yes myalgia Radiation: none Quality: sharp Consistency: intermittent Worsens with: other (certain movments) Associated Symptoms: denies other symptoms - Related Data Previous Rx's Medication Instructions Recorded Last Taken Type Ibuprofen [Motrin] 600 mg PO Q8H PRN #15 tablet 03/15/17 Unknown Rx Naproxen [Naprosyn] 500 mg PO BID #14 tablet 09/13/17 Unknown Rx Allergies Allergy/AdvReac Type Severity Reaction Status Date / Time No Known Allergies Allergy Verified 12/20/17 16:32 ED Review of Systems ROS: Stated complaint: RIGHT ARM PAIN Other details as noted in HPI Comment: All other systems reviewed and negative Constitutional: denies: chills, fever ED Past Medical Hx - Past Medical History Previous Medical History?: No - Surgical History Past Surgical History?: No - Social History Smoking Status: Current Every Day Smoker Substance Use Type: Alcohol - Medications Home Medications: Home Medications Medication Instructions Recorded Confirmed Last Taken Type Ibuprofen [Motrin] 600 mg PO Q8H PRN #15 tablet 03/15/17 Unknown Rx Naproxen [Naprosyn] 500 mg PO BID #14 tablet 09/13/17 Unknown Rx ED Physical Exam - General Limitations: No Limitations General appearance: alert, in no apparent distress - Head Head exam: Present: atraumatic, normocephalic - Eye Eye exam: Present: normal appearance - ENT ENT exam: Present: mucous membranes moist - Expanded Upper Extremity Exam Left Shoulder Exam: Present: normal inspection, full ROM. Absent: tenderness Upper Arm exam: Present: normal inspection, full ROM. Absent: tenderness Elbow exam: Present: normal inspection, full ROM. Absent: tenderness Forearm Wrist exam: Present: normal inspection, full ROM. Absent: tenderness Hand Wrist exam: Present: normal inspection, full ROM. Absent: tenderness Vascular: Present: normal capillary refill - Neurological Exam Neurological exam: Present: alert, oriented X3 - Psychiatric Psychiatric exam: Present: normal affect, normal mood - Skin Skin exam: Present: warm, dry, intact, normal color. Absent: rash ED Course Vital Signs 01/24/19 00:08 Temperature 98.2 F Pulse Rate 58 L Respiratory 18 Rate Blood Pressure 123/55 O2 Sat by Pulse 99 Oximetry ED Medical Decision Making - Radiology Data Radiology results: report reviewed Patient: OLEGARIO RODRIGUEZ MR#: [id number] 5 : 1990 Acct:[id number] Age/Sex: 28 / M ADM Date: 01/23/19 Loc: ED Attending Dr: Ordering Physician: XOCHILT GANDHI MD Date of Service: 01/24/19 Procedure(s): XR chest routine 2V Accession Number(s): [id number] cc: ED MD HIRAM Fluoro Time In Minutes: PROCEDURE: XR CHEST ROUTINE 2V TECHNIQUE: PA and lateral chest radiographs were obtained. HISTORY: chest pain COMPARISONS: None. FINDINGS: No infiltrate, pleural effusion, or pneumothorax seen. The cardiomediastinal silhouette is normal. IMPRESSION: Negative chest.. 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 Cxr neg. FROM of arm. Will recommend pain to take OTC Ibuprofen. and drink plenty of fluids. Critical care attestation.: If time is entered above; I have spent that time in minutes in the direct care of this critically ill patient, excluding procedure time. ED Disposition Clinical Impression: Strain of upper arm, left Disposition: DC-01 TO HOME OR SELFCARE Is pt being admited?: No Does the pt Need Aspirin: No Condition: Stable Instructions: Muscle Strain (ED) Additional Instructions: You can take over the counter Motrin, Advil or aleve . Be sure to use proper techniques in lifting heavy boxes. Referrals: GREER BOYD MD [Primary Care Provider] - 3-5 Days [facility] [Outside] - 3-5 Days Forms: Work/School Release Form(ED)
[2019-01-24 07:44] VITALS: BP 118/52
== END 2019-01-24 07:43 | disposition home or self-care (01) ==
LOC: ED 23:05
DX: S46.912A Strain of unspecified muscle, fascia and tendon at shoulder and upper arm level, left arm, initial encounter (principal); F17.200 Nicotine dependence, unspecified, uncomplicated; X58.XXXA Exposure to other specified factors, initial encounter; Y93.89 Activity, other specified; Y92.89 Other specified places as the place of occurrence of the external cause; Y99.8 Other external cause status
CPT/HCPCS: 71046; 93005; 93010

== ENCOUNTER 2019-07-28 00:46 | Emergency (ER) | payer MEDICAID ==
[2019-07-28 00:52] VITALS: BP 126/68
[2019-07-28] MEDS ORDERED: LIDOCAINE-MPF (1%) 10 MG/1 ML VIAL 5 ML INFILTRATI ONE (03:27)
--- NOTE | 2019-07-28 03:58 | Emergency Department Report ---
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 Pain is 4/10 aching soreness , pain is exacerbated by palpation and movement. Pain is relieved by nothing. there is mild swelling ,no drainage no fever no deformity, rom remains intact there is no numbness or tingling. MD complaint: foreign body Onset/Timin -: week(s) Tetanus Up to Date: yes Location: L hand Severity: moderate Severity scale (0 -10): 5 Quality: sharp Consistency: constant Improves with: none Worsens with: palpation, movement Context: other (foreign body ) Treatments Prior to Arrival: none - Related Data Previous Rx's Medication Instructions Recorded Last Taken Type Ibuprofen [Motrin] 600 mg PO Q8H PRN #15 tablet 03/15/17 Unknown Rx Famotidine [Pepcid] 20 mg PO BID #30 tablet 05/26/19 Unknown Rx Naproxen [Naprosyn TAB] 500 mg PO BID PRN #30 tablet 05/26/19 Unknown Rx diphenhydrAMINE [Benadryl CAP] 25 mg PO Q6HR PRN #30 capsule 05/26/19 Unknown Rx predniSONE [Deltasone] 20 mg PO QDAY #5 tab 05/26/19 Unknown Rx cephALEXin [Keflex] 500 mg PO Q8HR #30 cap 07/28/19 Unknown Rx traMADoL [Ultram] 50 mg PO Q6HR PRN #12 tablet 07/28/19 Unknown Rx Allergies Allergy/AdvReac Type Severity Reaction Status Date / Time No Known Allergies Allergy Verified 12/20/17 16:32 Abscess Boil HPI - HPI Chief Complaint: Skin/Abscess/Foreign Body Stated Complaint: LEFT FINGER PAIN Time Seen by Provider: 07/28/19 02:32 Home Medications: Previous Rx's Medication Instructions Recorded Last Taken Type Ibuprofen [Motrin] 600 mg PO Q8H PRN #15 tablet 03/15/17 Unknown Rx Famotidine [Pepcid] 20 mg PO BID #30 tablet 05/26/19 Unknown Rx Naproxen [Naprosyn TAB] 500 mg PO BID PRN #30 tablet 05/26/19 Unknown Rx diphenhydrAMINE [Benadryl CAP] 25 mg PO Q6HR PRN #30 capsule 05/26/19 Unknown Rx predniSONE [Deltasone] 20 mg PO QDAY #5 tab 05/26/19 Unknown Rx cephALEXin [Keflex] 500 mg PO Q8HR #30 cap 07/28/19 Unknown Rx traMADoL [Ultram] 50 mg PO Q6HR PRN #12 tablet 07/28/19 Unknown Rx Allergies/Adverse Reactions: Allergies Allergy/AdvReac Type Severity Reaction Status Date / Time No Known Allergies Allergy Verified 12/20/17 16:32 ED Review of Systems Constitutional: denies: chills, fever Eyes: denies: eye pain, eye discharge, vision change ENT: denies: ear pain, throat pain Respiratory: denies: cough, shortness of breath, wheezing Cardiovascular: denies: chest pain, palpitations Endocrine: no symptoms reported Gastrointestinal: denies: abdominal pain, nausea, diarrhea Genitourinary: denies: urgency, dysuria Musculoskeletal: denies: back pain, joint swelling, arthralgia Skin: other (splinter finger ) Neurological: denies: headache, weakness, paresthesias Psychiatric: denies: anxiety, depression ED Past Medical Hx - Past Medical History Previous Medical History?: No - Surgical History Past Surgical History?: No - Social History Smoking Status: Current Every Day Smoker Substance Use Type: Alcohol - Medications Home Medications: Home Medications Medication Instructions Recorded Confirmed Last Taken Type Ibuprofen [Motrin] 600 mg PO Q8H PRN #15 tablet 03/15/17 Unknown Rx Famotidine [Pepcid] 20 mg PO BID #30 tablet 05/26/19 Unknown Rx Naproxen [Naprosyn TAB] 500 mg PO BID PRN #30 tablet 05/26/19 Unknown Rx diphenhydrAMINE [Benadryl CAP] 25 mg PO Q6HR PRN #30 capsule 05/26/19 Unknown Rx predniSONE [Deltasone] 20 mg PO QDAY #5 tab 05/26/19 Unknown Rx cephALEXin [Keflex] 500 mg PO Q8HR #30 cap 07/28/19 Unknown Rx traMADoL [Ultram] 50 mg PO Q6HR PRN #12 tablet 07/28/19 Unknown Rx ED Physical Exam - General Limitations: No Limitations General appearance: alert, in no apparent distress - Head Head exam: Present: atraumatic, normocephalic - Eye Eye exam: Present: normal appearance - ENT ENT exam: Present: mucous membranes moist - Neck Neck exam: Present: normal inspection - Respiratory Respiratory exam: Present: normal lung sounds bilaterally. Absent: respiratory distress - Cardiovascular Cardiovascular Exam: Present: regular rate, normal rhythm. Absent: systolic murmur, diastolic murmur, rubs, gallop - GI/Abdominal GI/Abdominal exam: Present: soft, normal bowel sounds - Rectal Rectal exam: Present: deferred - Extremities Exam Extremities exam: Present: normal inspection, full ROM, tenderness (left index finger ) - Expanded Upper Extremity Exam Left Hand Wrist exam: Present: full ROM, tenderness (left index finger volar proximal to pip ), swelling, erythema. Absent: abrasion, laceration, ecchymosis, deformity, crepidus, dislocation, amputation, nail avulsion, subungual hematoma Neuro motor exam: Present: fingers 2-5 abduction intact Neurosensory exam: Present: radial nerve intact Vascular: Present: normal capillary refill - Back Exam Back exam: Present: normal inspection, full ROM. Absent: tenderness - Neurological Exam Neurological exam: Present: alert, oriented X3, CN II-XII intact, normal gait, reflexes normal. Absent: motor sensory deficit - Psychiatric Psychiatric exam: Present: normal affect, normal mood - Skin Skin exam: Present: warm, dry, intact, normal color. Absent: rash - I & D Left Volar Finger Type of Procedure: Simple Site: left volar finger I & D Procedure: betadine prep, sterile dressing applied Progress: left finger splinter site cleaned with betadine solution, anesthesia with 1% lidocaine 1 cc, incision with 18 need x 1, splinter manually expressed intact approx 0.5 cm wooden splint remove intact. All bleeding is controlled, rom remains intact , sterile dressing applied, pt given wound care instructions. pt tolerated procedure with minimal distress. ED Medical Decision Making - Medical Decision Making Incision for splinter removal, see procedure noted, all bleeding in controlled, pt tolerated procedure with minimal distress, pt for dc to home in stable co ndition at this time, will follow up with pcp in 2-3 days for wound check. pt verbalized agreement and understanding of same. ED Disposition Clinical Impression: Splinter, Foreign body Disposition: DC-01 TO HOME OR SELFCARE Is pt being admited?: No Does the pt Need Aspirin: No Condition: Stable Instructions: Soft Tissue Foreign Body (ED) Prescriptions: cephALEXin [Keflex] 500 mg PO Q8HR #30 cap traMADoL [Ultram] 50 mg PO Q6HR PRN #12 tablet PRN Reason: Pain Referrals: [facility] [Outside] - 3-5 Days Forms: Work/School Release Form(ED) Time of Disposition: 04:21 <ARCENIO PERLA P - Last Filed: 08/28/19 05:17> ED Review of Systems ROS: Stated complaint: LEFT FINGER PAIN Other details as noted in HPI ED Course Vital Signs 07/28/19 00:51 Temperature 97.5 F L Pulse Rate 68 Respiratory 18 Rate Blood Pressure 126/68 O2 Sat by Pulse 98 Oximetry ED Medical Decision Making - Medical Decision Making Attestation: Available for consultation Critical care attestation.: If time is entered above; I have spent that time in minutes in the direct care of this critically ill patient, excluding procedure time. ED Disposition Is pt being admited?: No
== END 2019-07-28 04:31 | disposition home or self-care (01) ==
LOC: ED 00:46
DX: S60.451A Superficial foreign body of left index finger, initial encounter (principal); F17.200 Nicotine dependence, unspecified, uncomplicated; Z79.1 Long term (current) use of non-steroidal anti-inflammatories (NSAID); Z79.899 Other long term (current) drug therapy; W45.8XXA Other foreign body or object entering through skin, initial encounter; Y93.89 Activity, other specified; Y92.89 Other specified places as the place of occurrence of the external cause; Y99.8 Other external cause status

== ENCOUNTER 2020-07-17 16:24 | Emergency (ER) | payer MEDICAID ==
--- NOTE | 2020-07-17 16:37 | Emergency Department Report ---
ED General Adult HPI - General Chief complaint: Shoulder Injury Stated complaint: RT SHOULDER INJURY/RIB/TESTICLES PX Time Seen by Provider: 07/17/20 16:33 Source: patient Mode of arrival: Ambulatory Limitations: No Limitations - History of Present Illness Initial comments: 29-year-old -[place]i male patient presents with complaints of right shou lder, right elbow, and right hand pain after a fall injury 2 days ago. Patient states he was intoxicated and passed out due to intoxication. He denies any head injury, headache, current dizziness, vision changes, nausea/vomiting, memory loss, or confusion. He also denies any numbness/tingling/weakness in his limbs, or difficulty with speech/ambulation. He rates his current pain as a 5/10 in severity. Pain worsens with movement and to touch. Severity scale (0 -10): 8 - Related Data Previous Rx's Medication Instructions Recorded Last Taken Type Ibuprofen [Motrin] 600 mg PO Q8H PRN #15 tablet 03/15/17 Unknown Rx Famotidine [Pepcid] 20 mg PO BID #30 tablet 05/26/19 Unknown Rx Naproxen [Naprosyn TAB] 500 mg PO BID PRN #30 tablet 05/26/19 Unknown Rx diphenhydrAMINE [Benadryl CAP] 25 mg PO Q6HR PRN #30 capsule 05/26/19 Unknown Rx predniSONE [Deltasone] 20 mg PO QDAY #5 tab 05/26/19 Unknown Rx cephALEXin [Keflex] 500 mg PO Q8HR #30 cap 07/28/19 Unknown Rx traMADoL [Ultram] 50 mg PO Q6HR PRN #12 tablet 07/28/19 Unknown Rx Ibuprofen [Motrin 800 MG tab] 800 mg PO Q8HR PRN #15 tablet 07/17/20 Unknown Rx Allergies Allergy/AdvReac Type Severity Reaction Status Date / Time No Known Allergies Allergy Verified 12/20/17 16:32 ED Review of Systems ROS: Stated complaint: RT SHOULDER INJURY/RIB/TESTICLES PX Other details as noted in HPI Constitutional: denies: chills, fever, malaise Respiratory: denies: cough, shortness of breath Cardiovascular: denies: chest pain, palpitations, edema Gastrointestinal: denies: abdominal pain, nausea, vomiting Musculoskeletal: arthralgia. denies: joint swelling Skin: denies: rash, lesions, change in color Neurological: denies: headache, weakness, numbness, paresthesias, confusion, abnormal gait, vertigo ED Past Medical Hx - Past Medical History Previous Medical History?: No - Surgical History Past Surgical History?: No - Social History Smoking Status: Current Every Day Smoker Substance Use Type: Alcohol - Medications Home Medications: Home Medications Medication Instructions Recorded Confirmed Last Taken Type Ibuprofen [Motrin] 600 mg PO Q8H PRN #15 tablet 03/15/17 Unknown Rx Famotidine [Pepcid] 20 mg PO BID #30 tablet 05/26/19 Unknown Rx Naproxen [Naprosyn TAB] 500 mg PO BID PRN #30 tablet 05/26/19 Unknown Rx diphenhydrAMINE [Benadryl CAP] 25 mg PO Q6HR PRN #30 capsule 05/26/19 Unknown Rx predniSONE [Deltasone] 20 mg PO QDAY #5 tab 05/26/19 Unknown Rx cephALEXin [Keflex] 500 mg PO Q8HR #30 cap 07/28/19 Unknown Rx traMADoL [Ultram] 50 mg PO Q6HR PRN #12 tablet 07/28/19 Unknown Rx Ibuprofen [Motrin 800 MG tab] 800 mg PO Q8HR PRN #15 tablet 07/17/20 Unknown Rx ED Physical Exam - General Limitations: No Limitations General appearance: alert, in no apparent distress - Head Head exam: Present: atraumatic, normocephalic - Eye Eye exam: Present: normal appearance. Absent: scleral icterus - Neck Neck exam: Present: normal inspection, full ROM. Absent: tenderness - Respiratory Respiratory exam: Present: normal lung sounds bilaterally. Absent: respiratory distress - Cardiovascular Cardiovascular Exam: Present: regular rate, normal rhythm - Neurological Exam Neurological exam: Present: alert, oriented X3, CN II-XII intact, normal gait. Absent: motor sensory deficit - Expanded Neurological Exam Expanded Cerebellar function: Finger to Nose: Normal, Heel to Victor: Normal, Romberg: Normal Sensory exam: Upper Extremity Light Touch: Normal, Lower Extremity Light Touch: Normal Motor strength exam: RUE: 5, LUE: 5, RLE: 5, LLE: 5 - Psychiatric Psychiatric exam: Present: normal affect, normal mood - Skin Skin exam: Present: warm, dry, intact, normal color, abrasion (Healing abrasions that appear to be older than 5 days noted to the right and left elbow, however patient states abrasions were obtained 2 days ago; no surrounding erythema or purulent drainage noted). Absent: rash, cyanosis, diaphoretic ED Course Vital Signs 07/17/20 16:28 Temperature 98.1 F Pulse Rate 70 Respiratory 18 Rate Blood Pressure 125/35 [Right] O2 Sat by Pulse 100 Oximetry ED Medical Decision Making - Medical Decision Making 29-year-old -[place]i male patient presents with complaints of right shoulder, right elbow, and right hand pain after a fall injury 2 days ago. Patient states he was intoxicated and passed out due to intoxication. He denies any head injury, headache, current dizziness, vision changes, nausea/vomiting, memory loss, or confusion. He also denies any numbness/tingling/weakness in his limbs, or difficulty with speech/ambulation. He rates his current pain as a 5/10 in severity. Pain worsens with movement and to touch. Neuro exam is normal. [place] CT head rule states CT head not necessary. X- rays are negative for fracture. He is well-appearing and stable for discharge home. Ibuprofen for pain as needed. Recommend patient follow-up with primary care in 3 days. Strict return precautions were discussed in detail with patient who verbalized understanding. Critical care attestation.: If time is entered above; I have spent that time in minutes in the direct care of this critically ill patient, excluding procedure time. ED Disposition Clinical Impression: Fall with injury Qualifiers: Encounter type: initial encounter Qualified Code(s): W19.XXXA - Unspecified fall, initial encounter Injury of right hand Qualifiers: Encounter type: initial encounter Qualified Code(s): S69.91XA - Unspecified injury of right wrist, hand and finger(s), initial encounter Injury of right shoulder Qualifiers: Encounter type: initial encounter Qualified Code(s): S49.91XA - Unspecified injury of right shoulder and upper arm, initial encounter Disposition: TO HOME OR SELFCARE Is pt being admited?: No Condition: Stable Instructions: Shoulder Sprain, Intermetacarpal Sprain Prescriptions: Ibuprofen [Motrin 800 MG tab] 800 mg PO Q8HR PRN #15 tablet PRN Reason: pain Referrals: [facility] [Provider Group] - 3-5 Days
--- NOTE | 2020-07-17 17:30 | XRay Report ---
LEFT HAND 3 VIEWS INDICATION / CLINICAL INFORMATION: Left hand pain after fall. COMPARISON: None available. FINDINGS: BONES/JOINT(S): No acute fracture or subluxation. No significant degenerative changes. SOFT TISSUES: No significant abnormality. ADDITIONAL FINDINGS: None. Signer Name: Steve Cedeño MD Signed: 07/17/2020 5:25 PM Workstation Name: [id number]
--- NOTE | 2020-07-17 17:30 | XRay Report ---
RIGHT SHOULDER 3 VIEWS INDICATION / CLINICAL INFORMATION: Right shoulder pain after fall. COMPARISON: None available. FINDINGS: BONES/JOINT(S): No acute fracture or subluxation. No significant degenerative changes. SOFT TISSUES: No significant abnormality. ADDITIONAL FINDINGS: None. Signer Name: Steve Cedeño MD Signed: 07/17/2020 5:26 PM Workstation Name: [id number]
[2020-07-17 17:59] VITALS: BP 123/73
== END 2020-07-17 18:03 | disposition home or self-care (01) ==
LOC: ED 16:24
DX: S49.91XA Unspecified injury of right shoulder and upper arm, initial encounter (principal); S69.91XA Unspecified injury of right wrist, hand and finger(s), initial encounter; F17.200 Nicotine dependence, unspecified, uncomplicated; Z79.1 Long term (current) use of non-steroidal anti-inflammatories (NSAID); Z79.899 Other long term (current) drug therapy; W19.XXXA Unspecified fall, initial encounter; Y93.89 Activity, other specified; Y92.89 Other specified places as the place of occurrence of the external cause; Y99.8 Other external cause status

== ENCOUNTER 2021-11-02 23:04 | Emergency (ER) | payer MEDICAID ==
[2021-11-03 01:49] VITALS: BP 100/63
[2021-11-03] MEDS ORDERED: SULFAMETHOXAZOLE/TRIMETHOPRIM 800/160MG DS TAB PO ONE (04:16)
[2021-11-03] MEDS ORDERED: ACETAMINOPHEN 500 MG TAB PO ONE (04:16)
[2021-11-03] MEDS ORDERED: IBUPROFEN 600 MG TAB PO ONE (04:16)
--- NOTE | 2021-11-03 04:22 | Emergency Department Report ---
ED General Adult HPI - General Chief complaint: Medical Clearance Stated complaint: LT FOOT AND ARM PAIN Source: patient Mode of arrival: Ambulatory Limitations: No Limitations - History of Present Illness Initial comments: Patient is a 31-year-old -[place] male with no past medical history presents to the ED with complaint of acute onset persistent painful, swollen dis carlene left great toe for the last 3 days after wearing very tight shoes while incarcerated in residential for 2 months. The patient states that the pain and the swelling of the left great toe has worsened especially in the last 2 days. Patient denies fever, chills, traumatic injury, fall, nausea and vomiting, numbness and tingling or weakness of left foot or left great toe, low back pain, chest pain or shortness of breath. MD Complaint: left great toe pain, swelling -: Sudden, days(s) (3) Location: lower extremity (left great toe pain) Radiation: non-radiation Severity scale (0 -10): 6 Quality: aching, sharp Consistency: constant Improves with: none Worsens with: movement Associated Symptoms: denies other symptoms. denies: confusion, chest pain, cough, diaphoresis, fever/chills, headaches, loss of appetite, malaise, nausea/vomiting, rash, shortness of breath, syncope, weakness Treatments Prior to Arrival: none - Related Data Previous Rx's Medication Instructions Recorded Last Taken Type Ibuprofen [Motrin] 600 mg PO Q8H PRN #15 tablet 03/15/17 Unknown Rx Famotidine [Pepcid] 20 mg PO BID #30 tablet 05/26/19 Unknown Rx Naproxen [Naprosyn TAB] 500 mg PO BID PRN #30 tablet 05/26/19 Unknown Rx diphenhydrAMINE [Benadryl CAP] 25 mg PO Q6HR PRN #30 capsule 05/26/19 Unknown Rx predniSONE [Deltasone] 20 mg PO QDAY #5 tab 05/26/19 Unknown Rx cephALEXin [Keflex] 500 mg PO Q8HR #30 cap 07/28/19 Unknown Rx traMADoL [Ultram] 50 mg PO Q6HR PRN #12 tablet 07/28/19 Unknown Rx Ibuprofen [Motrin 800 MG tab] 800 mg PO Q8HR PRN #15 tablet 07/17/20 Unknown Rx Ibuprofen [Motrin] 600 mg PO Q8H PRN #30 tablet 11/03/21 Unknown Rx Sulfamethoxazole/Trimethoprim 1 each PO Q12H #20 tab 11/03/21 Unknown Rx [Bactrim DS TAB] Allergies Allergy/AdvReac Type Severity Reaction Status Date / Time No Known Allergies Allergy Verified 12/20/17 16:32 ED Review of Systems ROS: Stated complaint: LT FOOT AND ARM PAIN Other details as noted in HPI Constitutional: denies: chills, fever Eyes: denies: eye pain, eye discharge, vision change ENT: denies: ear pain, throat pain Respiratory: denies: cough, shortness of breath, wheezing Cardiovascular: denies: chest pain, palpitations Endocrine: no symptoms reported Gastrointestinal: denies: abdominal pain, nausea, diarrhea Genitourinary: denies: urgency, dysuria Musculoskeletal: joint swelling, arthralgia (Painful, swollen left great toe). denies: back pain Skin: denies: rash, lesions Neurological: denies: headache, weakness, paresthesias Psychiatric: denies: anxiety, depression Hematological/Lymphatic: denies: easy bleeding, easy bruising ED Past Medical Hx - Past Medical History Previous Medical History?: No - Surgical History Past Surgical History?: No - Social History Smoking Status: Current Every Day Smoker Substance Use Type: None - Medications Home Medications: Home Medications Medication Instructions Recorded Confirmed Last Taken Type Ibuprofen [Motrin] 600 mg PO Q8H PRN #15 tablet 03/15/17 Unknown Rx Famotidine [Pepcid] 20 mg PO BID #30 tablet 05/26/19 Unknown Rx Naproxen [Naprosyn TAB] 500 mg PO BID PRN #30 tablet 05/26/19 Unknown Rx diphenhydrAMINE [Benadryl CAP] 25 mg PO Q6HR PRN #30 capsule 05/26/19 Unknown Rx predniSONE [Deltasone] 20 mg PO QDAY #5 tab 05/26/19 Unknown Rx cephALEXin [Keflex] 500 mg PO Q8HR #30 cap 07/28/19 Unknown Rx traMADoL [Ultram] 50 mg PO Q6HR PRN #12 tablet 07/28/19 Unknown Rx Ibuprofen [Motrin 800 MG tab] 800 mg PO Q8HR PRN #15 tablet 07/17/20 Unknown Rx Ibuprofen [Motrin] 600 mg PO Q8H PRN #30 tablet 11/03/21 Unknown Rx Sulfamethoxazole/Trimethoprim 1 each PO Q12H #20 tab 11/03/21 Unknown Rx [Bactrim DS TAB] ED Physical Exam - General Limitations: No Limitations General appearance: alert, in no apparent distress - Head Head exam: Present: atraumatic, normocephalic, normal inspection - Eye Eye exam: Present: normal appearance, PERRL, EOMI Pupils: Present: normal accommodation - ENT ENT exam: Present: normal exam, normal orophraynx, mucous membranes moist, TM's normal bilaterally, normal external ear exam - Neck Neck exam: Present: normal inspection, full ROM. Absent: tenderness, lymphadenopathy - Respiratory Respiratory exam: Present: normal lung sounds bilaterally. Absent: respiratory distress, wheezes, rales, rhonchi, chest wall tenderness, accessory muscle use, decreased breath sounds, prolonged expiratory - Cardiovascular Cardiovascular Exam: Present: regular rate, normal rhythm, normal heart sounds. Absent: systolic murmur, diastolic murmur, rubs, gallop - GI/Abdominal GI/Abdominal exam: Present: soft, normal bowel sounds. Absent: tenderness, guarding, hyperactive bowel sounds, hypoactive bowel sounds, mass - Extremities Exam Extremities exam: Present: normal inspection, full ROM, tenderness (Palpable distal left great toe tenderness with swelling), normal capillary refill, joint swelling. Absent: pedal edema, calf tenderness - Back Exam Back exam: Present: normal inspection, full ROM. Absent: tenderness, CVA tenderness (R), CVA tenderness (L), muscle spasm, paraspinal tenderness, vertebral tenderness - Neurological Exam Neurological exam: Present: alert, oriented X3, CN II-XII intact, normal gait, reflexes normal - Psychiatric Psychiatric exam: Present: normal affect, normal mood - Skin Skin exam: Present: warm, dry, intact, normal color. Absent: rash ED Course Vital Signs 11/03/21 01:35 Temperature 98.4 F Pulse Rate 65 Respiratory 17 Rate Blood Pressure 100/63 [Right] O2 Sat by Pulse 98 Oximetry ED Medical Decision Making - Medical Decision Making This is a 31-year-old -[place] male with no past medical history presents to the ED with complaint of acute onset persistent painful, swollen distal left great toe for the last 3 days after wearing very tight shoes while incarcerated in residential for 2 months. The patient states that the pain and the swelling of the left great toe has worsened especially in the last 2 days. In the ED, patient is alert and oriented x3 and is not in any distress. Patient however appears to be in significant pain. Patient was treated for pain in the ED and also receive initial oral antibiotics in the ED. Patient was discharged home on pain medications and antibiotics and advised to follow-up with his primary care physician in 7 to 10 days for reevaluation return to the ED immediately if symptoms get worse. - Differential Diagnosis Cellulitis; paronychia; ingrown toenail Critical care attestation.: If time is entered above; I have spent that time in minutes in the direct care of this critically ill patient, excluding procedure time. ED Disposition Clinical Impression: Paronychia of great toe of left foot, Cellulitis of great toe of left foot Disposition: 01 HOME / SELF CARE / HOMELESS Is pt being admited?: No Does the pt Need Aspirin: No Condition: Stable Instructions: Cellulitis, Adult, [id number], Paronychia, [id number] Additional Instructions: Take medication with food, drink plenty of fluids and follow-up with your primary care physician in 7 to 10 days for reevaluation. Return to the ED immediately if symptoms get worse. Prescriptions: Sulfamethoxazole/Trimethoprim [Bactrim DS TAB] 1 each PO Q12H #20 tab Ibuprofen [Motrin] 600 mg PO Q8H PRN #30 tablet PRN Reason: Pain Referrals: [facility] [Provider Group] - 3-5 Days Time of Disposition: 04:24 Print Language: MICRONESIAN
== END 2021-11-03 05:38 | disposition home or self-care (01) ==
LOC: ED 23:04
DX: L03.032 Cellulitis of left toe (principal); F17.200 Nicotine dependence, unspecified, uncomplicated
CPT/HCPCS: 99282

== ENCOUNTER 2021-11-11 00:18 | Emergency (ER) | payer MEDICAID ==
[2021-11-11] MEDS ORDERED: HYDROcodone/ACETAMINOPHEN 5-325 MG TAB PO STA (05:35)
--- NOTE | 2021-11-11 06:04 | Emergency Department Report ---
ED General Adult HPI - General Chief complaint: Pain General Stated complaint: INFECTED LEFT FOOT Time Seen by Provider: 11/11/21 05:10 Source: patient Mode of arrival: Ambulatory Limitations: No Limitations - History of Present Illness Initial comments: Review of medical management, complaining of an infected right hallux in the form of a paronychia which she was prescribed antibiotics and pain medication but lost the prescription and was unable to take more than a couple doses of medication pain returns emergency department seeking medication refill. States that the toe started draining and pain is dull and throbbing but reports no fever, chills, sweats. No nausea, no vomiting, no reinjuring lesions or other aggravating injury factors. -: Gradual Severity scale (0 -10): 10 Quality: dull Consistency: constant Improves with: none Worsens with: none Associated Symptoms: denies other symptoms Treatments Prior to Arrival: none - Related Data Previous Rx's Medication Instructions Recorded Last Taken Type Ibuprofen [Motrin] 600 mg PO Q8H PRN #15 tablet 03/15/17 Unknown Rx Famotidine [Pepcid] 20 mg PO BID #30 tablet 05/26/19 Unknown Rx Naproxen [Naprosyn TAB] 500 mg PO BID PRN #30 tablet 05/26/19 Unknown Rx diphenhydrAMINE [Benadryl CAP] 25 mg PO Q6HR PRN #30 capsule 05/26/19 Unknown Rx predniSONE [Deltasone] 20 mg PO QDAY #5 tab 05/26/19 Unknown Rx traMADoL [Ultram] 50 mg PO Q6HR PRN #12 tablet 07/28/19 Unknown Rx Ibuprofen [Motrin 800 MG tab] 800 mg PO Q8HR PRN #15 tablet 07/17/20 Unknown Rx Ibuprofen [Motrin] 600 mg PO Q8H PRN #30 tablet 11/03/21 Unknown Rx Acetaminophen/Codeine [Tylenol 1 tab PO Q6H PRN #12 tab 11/11/21 Unknown Rx /Codeine # 3 tab] Sulfamethoxazole/Trimethoprim 1 each PO Q12H #20 tab 11/11/21 Unknown Rx [Bactrim DS TAB] cephALEXin [Keflex] 500 mg PO Q8HR #30 cap 11/11/21 Unknown Rx Allergies Allergy/AdvReac Type Severity Reaction Status Date / Time No Known Allergies Allergy Verified 12/20/17 16:32 ED Review of Systems ROS: Stated complaint: INFECTED LEFT FOOT Other details as noted in HPI Comment: All other systems reviewed and negative ED Past Medical Hx - Social History Smoking Status: Current Every Day Smoker Substance Use Type: None - Medications Home Medications: Home Medications Medication Instructions Recorded Confirmed Last Taken Type Ibuprofen [Motrin] 600 mg PO Q8H PRN #15 tablet 03/15/17 Unknown Rx Famotidine [Pepcid] 20 mg PO BID #30 tablet 05/26/19 Unknown Rx Naproxen [Naprosyn TAB] 500 mg PO BID PRN #30 tablet 05/26/19 Unknown Rx diphenhydrAMINE [Benadryl CAP] 25 mg PO Q6HR PRN #30 capsule 05/26/19 Unknown Rx predniSONE [Deltasone] 20 mg PO QDAY #5 tab 05/26/19 Unknown Rx traMADoL [Ultram] 50 mg PO Q6HR PRN #12 tablet 07/28/19 Unknown Rx Ibuprofen [Motrin 800 MG tab] 800 mg PO Q8HR PRN #15 tablet 07/17/20 Unknown Rx Ibuprofen [Motrin] 600 mg PO Q8H PRN #30 tablet 11/03/21 Unknown Rx Acetaminophen/Codeine [Tylenol 1 tab PO Q6H PRN #12 tab 11/11/21 Unknown Rx /Codeine # 3 tab] Sulfamethoxazole/Trimethoprim 1 each PO Q12H #20 tab 11/11/21 Unknown Rx [Bactrim DS TAB] cephALEXin [Keflex] 500 mg PO Q8HR #30 cap 11/11/21 Unknown Rx ED Physical Exam - General Limitations: No Limitations General appearance: alert, in no apparent distress - Head Head exam: Present: atraumatic, normocephalic - Eye Eye exam: Present: normal appearance, PERRL - ENT ENT exam: Present: mucous membranes moist - Neck Neck exam: Present: normal inspection - Respiratory Respiratory exam: Present: normal lung sounds bilaterally. Absent: respiratory distress - Cardiovascular Cardiovascular Exam: Present: regular rate, normal rhythm. Absent: systolic murmur, diastolic murmur, rubs, gallop - GI/Abdominal GI/Abdominal exam: Present: soft, normal bowel sounds - Rectal Rectal exam: Present: deferred - Extremities Exam Extremities exam: Present: normal inspection, tenderness (Healing paronychia to the hallux with slightly raised nailbed area and matrix. No lymphangitis cellulitis noted pulses 2+ capillary refills are brisk.) - Back Exam Back exam: Present: normal inspection - Neurological Exam Neurological exam: Present: alert, oriented X3, CN II-XII intact - Psychiatric Psychiatric exam: Present: normal affect, normal mood - Skin Skin exam: Present: warm, dry, intact, normal color. Absent: rash ED Course Vital Signs 11/11/21 05:43 Respiratory 16 Rate Critical care attestation.: If time is entered above; I have spent that time in minutes in the direct care of this critically ill patient, excluding procedure time. ED Disposition Clinical Impression: Paronychia of great toe of left foot Disposition: HOME / SELF CARE / HOMELESS Is pt being admited?: No Does the pt Need Aspirin: No Condition: Stable Instructions: Paronychia Prescriptions: Sulfamethoxazole/Trimethoprim [Bactrim DS TAB] 1 each PO Q12H #20 tab cephALEXin [Keflex] 500 mg PO Q8HR #30 cap Acetaminophen/Codeine [Tylenol /Codeine # 3 tab] 1 tab PO Q6H PRN #12 tab PRN Reason: Pain , Severe (7-10) Referrals: [facility] [Provider Group] - 3-5 Days PRIMARY CARE, [Primary Care Provider] - 3-5 Days
[2021-11-11 06:56] VITALS: BP 114/39
== END 2021-11-11 06:42 | disposition home or self-care (01) ==
LOC: ED 00:18
DX: L03.032 Cellulitis of left toe (principal); Z76.0 Encounter for issue of repeat prescription; F17.200 Nicotine dependence, unspecified, uncomplicated
CPT/HCPCS: 99282

== ENCOUNTER 2021-12-18 02:17 | Emergency (ER) | payer MEDICAID ==
[2021-12-18 02:52] VITALS: BP 127/67
[2021-12-18] MEDS ORDERED: IBUPROFEN 800 MG TAB PO ONE (06:07)
[2021-12-18] MEDS ORDERED: cephALEXin 500 MG CAP PO ONE (06:07)
--- NOTE | 2021-12-18 06:13 | Emergency Department Report ---
ED General Adult HPI - General Chief complaint: Extremity Problem,Nontraumatic Stated complaint: FOOT PAIN Time Seen by Provider: 12/18/21 06:06 Source: patient Mode of arrival: Ambulatory Limitations: No Limitations - History of Present Illness Initial comments: 31-year-old male who presents with left great toe pain and swelling x3 weeks. Patient states wearing boots that were irritating toe. Now red erythema swelling. Patient denies drainage. There is been no fall injury or trauma. Patient remains amatory with steady gait. Symptoms are exacerbated by weightbearing however. There is no open wound no lesions or ulcers. Patient does not have diabetes. - Related Data Previous Rx's Medication Instructions Recorded Last Taken Type Ibuprofen [Motrin] 600 mg PO Q8H PRN #15 tablet 03/15/17 Unknown Rx Famotidine [Pepcid] 20 mg PO BID #30 tablet 05/26/19 Unknown Rx Naproxen [Naprosyn TAB] 500 mg PO BID PRN #30 tablet 05/26/19 Unknown Rx diphenhydrAMINE [Benadryl CAP] 25 mg PO Q6HR PRN #30 capsule 05/26/19 Unknown Rx predniSONE [Deltasone] 20 mg PO QDAY #5 tab 05/26/19 Unknown Rx traMADoL [Ultram] 50 mg PO Q6HR PRN #12 tablet 07/28/19 Unknown Rx Ibuprofen [Motrin 800 MG tab] 800 mg PO Q8HR PRN #15 tablet 07/17/20 Unknown Rx Ibuprofen [Motrin] 600 mg PO Q8H PRN #30 tablet 11/03/21 Unknown Rx Acetaminophen/Codeine [Tylenol 1 tab PO Q6H PRN #12 tab 11/11/21 Unknown Rx /Codeine # 3 tab] Sulfamethoxazole/Trimethoprim 1 each PO Q12H #20 tab 11/11/21 Unknown Rx [Bactrim DS TAB] cephALEXin [Keflex] 500 mg PO Q8HR #30 cap 11/11/21 Unknown Rx Ibuprofen [Motrin 800 MG tab] 800 mg PO Q8HR PRN #30 tablet 12/18/21 Unknown Rx cephALEXin [Keflex] 500 mg PO Q8HR 7 Days #21 cap 12/18/21 Unknown Rx Allergies Allergy/AdvReac Type Severity Reaction Status Date / Time No Known Allergies Allergy Verified 12/20/17 16:32 ED Review of Systems ROS: Stated complaint: FOOT PAIN Other details as noted in HPI Constitutional: denies: chills, fever Eyes: denies: eye pain, eye discharge, vision change ENT: denies: ear pain, throat pain Respiratory: denies: cough, shortness of breath, wheezing Cardiovascular: denies: chest pain, palpitations Endocrine: no symptoms reported Gastrointestinal: denies: abdominal pain, nausea, diarrhea Genitourinary: denies: urgency, dysuria Musculoskeletal: other (left great to pain swelling redness ) Skin: other (erythema left great toe ). denies: rash, lesions Neurological: denies: headache, weakness, paresthesias, vertigo Psychiatric: denies: anxiety, depression Hematological/Lymphatic: denies: easy bleeding, easy bruising ED Past Medical Hx - Social History Smoking Status: Current Every Day Smoker Substance Use Type: None - Medications Home Medications: Home Medications Medication Instructions Recorded Confirmed Last Taken Type Ibuprofen [Motrin] 600 mg PO Q8H PRN #15 tablet 03/15/17 Unknown Rx Famotidine [Pepcid] 20 mg PO BID #30 tablet 05/26/19 Unknown Rx Naproxen [Naprosyn TAB] 500 mg PO BID PRN #30 tablet 05/26/19 Unknown Rx diphenhydrAMINE [Benadryl CAP] 25 mg PO Q6HR PRN #30 capsule 05/26/19 Unknown Rx predniSONE [Deltasone] 20 mg PO QDAY #5 tab 05/26/19 Unknown Rx traMADoL [Ultram] 50 mg PO Q6HR PRN #12 tablet 07/28/19 Unknown Rx Ibuprofen [Motrin 800 MG tab] 800 mg PO Q8HR PRN #15 tablet 07/17/20 Unknown Rx Ibuprofen [Motrin] 600 mg PO Q8H PRN #30 tablet 11/03/21 Unknown Rx Acetaminophen/Codeine [Tylenol 1 tab PO Q6H PRN #12 tab 11/11/21 Unknown Rx /Codeine # 3 tab] Sulfamethoxazole/Trimethoprim 1 each PO Q12H #20 tab 11/11/21 Unknown Rx [Bactrim DS TAB] cephALEXin [Keflex] 500 mg PO Q8HR #30 cap 11/11/21 Unknown Rx Ibuprofen [Motrin 800 MG tab] 800 mg PO Q8HR PRN #30 tablet 12/18/21 Unknown Rx cephALEXin [Keflex] 500 mg PO Q8HR 7 Days #21 cap 12/18/21 Unknown Rx ED Physical Exam - General Limitations: No Limitations General appearance: alert, in no apparent distress - Head Head exam: Present: normocephalic, normal inspection - Eye Eye exam: Present: normal appearance, EOMI Pupils: Present: normal accommodation - ENT ENT exam: Present: mucous membranes moist - Neck Neck exam: Present: normal inspection - Respiratory Respiratory exam: Present: normal lung sounds bilaterally. Absent: respiratory distress, wheezes, stridor - Cardiovascular Cardiovascular Exam: Present: regular rate, normal rhythm, normal heart sounds. Absent: systolic murmur, diastolic murmur, rubs, gallop - GI/Abdominal GI/Abdominal exam: Present: soft, normal bowel sounds. Absent: distended, tenderness - Rectal Rectal exam: Present: deferred - Extremities Exam Extremities exam: Present: full ROM, tenderness, normal capillary refill - Expanded Lower Extremity Exam Left Foot/Toe exam: Present: tenderness, swelling, erythema, subungual hematoma. Absent: abrasion, laceration, ecchymosis, deformity, crepidus, amputation, puncture wound, foreign body, calcaneal tenderness, tenderness at base of 5th metatarsal, nail avulsion Neuro vascular tendon exam: Absent: pulse deficit, motor deficit, sensory deficit, tendon deficit Gait: Positive: observed and normal - Back Exam Back exam: Present: normal inspection. Absent: CVA tenderness (R), CVA tenderness (L) - Neurological Exam Neurological exam: Present: alert, oriented X3, CN II-XII intact, normal gait - Expanded Neurological Exam Expanded Patient oriented to: Present: person, place, time Motor strength exam: RLE: 5, LLE: 5 Best Eye Response (Stamps): (4) open spontaneously Best Motor Response (Jin): (6) obeys commands Best Verbal Response (Jin): (5) oriented Jin Total: 15 - Psychiatric Psychiatric exam: Present: normal affect, normal mood - Skin Skin exam: Present: warm, dry, intact, normal color. Absent: rash ED Course Vital Signs 12/18/21 02:20 Temperature 97.8 F Pulse Rate 72 Respiratory 18 Rate Blood Pressure 127/67 O2 Sat by Pulse 100 Oximetry ED Medical Decision Making - Medical Decision Making This is cellulitis of left great toe, there was a subungual hematoma that is dry and nondraining at this time there is no throbbing there is no drainage no fever. Distal pulses are intact patient is amatory with steady gait plan DC to home with antibiotics and NSAIDs as needed foot soaks, patient will follow up with primary care in 2 to 3 days. Patient declines nail removal. Critical care attestation.: If time is entered above; I have spent that time in minutes in the direct care of this critically ill patient, excluding procedure time. ED Disposition Clinical Impression: Cellulitis of left toe Disposition: HOME / SELF CARE / HOMELESS Is pt being admited?: No Does the pt Need Aspirin: No Condition: Stable Instructions: Cellulitis, Adult Additional Instructions: Take medications as prescribed, foot care as directed. Follow-up with your doctor in 2 to 3 days. Return to emergency department should symptoms worsen. Prescriptions: cephALEXin [Keflex] 500 mg PO Q8HR 7 Days #21 cap Ibuprofen [Motrin 800 MG tab] 800 mg PO Q8HR PRN #30 tablet PRN Reason: pain Referrals: SHANELLE HERNANDEZ MD [Staff Physician] - 3-5 Days Forms: Work/School Release Form(ED) Time of Disposition: 06:15
== END 2021-12-18 06:52 | disposition home or self-care (01) ==
LOC: ED 02:17
DX: L03.032 Cellulitis of left toe (principal); F17.200 Nicotine dependence, unspecified, uncomplicated; Z79.899 Other long term (current) drug therapy
CPT/HCPCS: 99282

== ENCOUNTER 2022-03-29 18:40 | Emergency (ER) | payer MEDICAID ==
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
[2022-03-30 04:16] VITALS: BP 141/76
== END 2022-03-30 04:16 | disposition home or self-care (01) ==
LOC: ED 18:40
DX: T20.04XD Burn of unspecified degree of nose (septum), subsequent encounter (principal); F17.290 Nicotine dependence, other tobacco product, uncomplicated; X08.8XXD Exposure to other specified smoke, fire and flames, subsequent encounter
CPT/HCPCS: 99281

== ENCOUNTER 2022-04-21 22:19 | Emergency (ER) | payer MEDICAID ==
--- NOTE | 2022-04-22 11:04 | Emergency Department Report ---
ED Abdominal Pain HPI - General Chief Complaint: Extremity Injury, Lower Stated Complaint: BILATERAL BIG TOE PAIN Time Seen by Provider: 04/22/22 10:45 Source: patient, EMS Mode of arrival: Ambulatory Limitations: No Limitations - History of Present Illness Initial Comments: 31-year-old black male with no past medical history presents to the emergency d [facility] for evaluation of strong smelling gas. He states that over the last couple days whenever he has flatulence, it smells bad. He states that once he had that before. He had a sexually transmitted disease. He denies any abdominal pain, dysuria, penile discharge, or any open sores. He denies nausea, vomiting, fever, and any other symptoms. MD Complaint: other (Malodorous gas) -: Gradual, days(s) (4-5) Severity scale (0 -10): 0 Associated Symptoms: denies: nausea, vomiting, diarrhea, fever, chills, constipation, dysuria, hematemesis, hematochezia, melena, hematuria, anorexia, syncope - Related Data Previous Rx's Medication Instructions Recorded Last Taken Type Ibuprofen [Motrin] 600 mg PO Q8H PRN #15 tablet 03/15/17 Unknown Rx Famotidine [Pepcid] 20 mg PO BID #30 tablet 05/26/19 Unknown Rx Naproxen [Naprosyn TAB] 500 mg PO BID PRN #30 tablet 05/26/19 Unknown Rx diphenhydrAMINE [Benadryl CAP] 25 mg PO Q6HR PRN #30 capsule 05/26/19 Unknown Rx predniSONE [Deltasone] 20 mg PO QDAY #5 tab 05/26/19 Unknown Rx traMADoL [Ultram] 50 mg PO Q6HR PRN #12 tablet 07/28/19 Unknown Rx Ibuprofen [Motrin 800 MG tab] 800 mg PO Q8HR PRN #15 tablet 07/17/20 Unknown Rx Ibuprofen [Motrin] 600 mg PO Q8H PRN #30 tablet 11/03/21 Unknown Rx Acetaminophen/Codeine [Tylenol 1 tab PO Q6H PRN #12 tab 11/11/21 Unknown Rx /Codeine # 3 tab] Sulfamethoxazole/Trimethoprim 1 each PO Q12H #20 tab 11/11/21 Unknown Rx [Bactrim DS TAB] cephALEXin [Keflex] 500 mg PO Q8HR #30 cap 11/11/21 Unknown Rx Ibuprofen [Motrin 800 MG tab] 800 mg PO Q8HR PRN #30 tablet 12/18/21 Unknown Rx cephALEXin [Keflex] 500 mg PO Q8HR 7 Days #21 cap 12/18/21 Unknown Rx Simethicone [Anti-Gas] 180 mg PO TID PRN #30 cap 04/22/22 Unknown Rx Allergies Allergy/AdvReac Type Severity Reaction Status Date / Time No Known Allergies Allergy Verified 04/22/22 11:13 ED Review of Systems ROS: Stated complaint: BILATERAL BIG TOE PAIN Other details as noted in HPI Comment: All other systems reviewed and negative Constitutional: denies: chills, fever ENT: denies: congestion Respiratory: denies: shortness of breath Cardiovascular: denies: chest pain, palpitations Gastrointestinal: denies: abdominal pain, nausea, vomiting, diarrhea, hematemesis, melena, hematochezia Genitourinary: denies: urgency, dysuria Musculoskeletal: denies: back pain Skin: denies: rash, lesions Neurological: denies: headache, weakness ED Past Medical Hx - Social History Smoking Status: Current Every Day Smoker Substance Use Type: None - Medications Home Medications: Home Medications Medication Instructions Recorded Confirmed Last Taken Type Ibuprofen [Motrin] 600 mg PO Q8H PRN #15 tablet 03/15/17 Unknown Rx Famotidine [Pepcid] 20 mg PO BID #30 tablet 05/26/19 Unknown Rx Naproxen [Naprosyn TAB] 500 mg PO BID PRN #30 tablet 05/26/19 Unknown Rx diphenhydrAMINE [Benadryl CAP] 25 mg PO Q6HR PRN #30 capsule 05/26/19 Unknown Rx predniSONE [Deltasone] 20 mg PO QDAY #5 tab 05/26/19 Unknown Rx traMADoL [Ultram] 50 mg PO Q6HR PRN #12 tablet 07/28/19 Unknown Rx Ibuprofen [Motrin 800 MG tab] 800 mg PO Q8HR PRN #15 tablet 07/17/20 Unknown Rx Ibuprofen [Motrin] 600 mg PO Q8H PRN #30 tablet 11/03/21 Unknown Rx Acetaminophen/Codeine [Tylenol 1 tab PO Q6H PRN #12 tab 11/11/21 Unknown Rx /Codeine # 3 tab] Sulfamethoxazole/Trimethoprim 1 each PO Q12H #20 tab 11/11/21 Unknown Rx [Bactrim DS TAB] cephALEXin [Keflex] 500 mg PO Q8HR #30 cap 11/11/21 Unknown Rx Ibuprofen [Motrin 800 MG tab] 800 mg PO Q8HR PRN #30 tablet 12/18/21 Unknown Rx cephALEXin [Keflex] 500 mg PO Q8HR 7 Days #21 cap 12/18/21 Unknown Rx Simethicone [Anti-Gas] 180 mg PO TID PRN #30 cap 04/22/22 Unknown Rx ED Physical Exam - General Limitations: No Limitations General appearance: alert, in no apparent distress - Head Head exam: Present: atraumatic, normocephalic - Eye Eye exam: Present: normal appearance. Absent: conjunctival injection, periorbital swelling, periorbital tenderness - ENT ENT exam: Present: normal exam - Neck Neck exam: Present: normal inspection, full ROM. Absent: tenderness, lymphadenopathy - Respiratory Respiratory exam: Present: normal lung sounds bilaterally. Absent: respiratory distress, wheezes, rales, rhonchi, stridor, chest wall tenderness - Cardiovascular Cardiovascular Exam: Present: regular rate, normal heart sounds - GI/Abdominal GI/Abdominal exam: Present: soft, normal bowel sounds. Absent: distended, tenderness, guarding, rebound, rigid - Extremities Exam Extremities exam: Present: normal inspection, full ROM, normal capillary refill. Absent: tenderness, pedal edema, joint swelling, calf tenderness - Back Exam Back exam: Present: normal inspection. Absent: CVA tenderness (R), CVA t enderness (L) - Neurological Exam Neurological exam: Present: alert, oriented X3, normal gait - Psychiatric Psychiatric exam: Present: normal affect, normal mood - Skin Skin exam: Present: warm, dry, intact, normal color ED Course Vital Signs 04/21/22 04/22/22 22:30 11:13 Temperature 98 F 98.0 F Pulse Rate 98 H 88 Respiratory 16 18 Rate Blood Pressure 139/90 128/72 [Right] O2 Sat by Pulse 98 100 Oximetry ED Medical Decision Making - Medical Decision Making 31-year-old black male with no past medical history presents to the emergency department for evaluation of strong smelling gas. He states that over the last couple days whenever he has flatulence, it smells bad. He states that once he had that before. He had a sexually transmitted disease. He denies any abdominal pain, dysuria, penile discharge, or any open sores. He denies nausea, vomiting, fever, and any other symptoms. Physical exam unremarkable. Patient without any complaints of at this time. Patient be discharged home with anti-gas medication and advised to follow-up with primary care provider for further evaluation and management and return to the emergency department for any concerning symptoms. He verbalizes understanding of and agreement with plan of care. Critical care attestation.: If time is entered above; I have spent that time in minutes in the direct care of this critically ill patient, excluding procedure time. ED Disposition Clinical Impression: Flatulence Disposition: 01 HOME / SELF CARE / HOMELESS Is pt being admited?: No Does the pt Need Aspirin: No Condition: Undetermined Instructions: Indigestion, [id number], Abdominal Bloating Additional Instructions: Take medications as prescribed. Follow-up with primary care provider if no improvement or worsening symptoms. Return to the emergency department as needed. Prescriptions: Simethicone [Anti-Gas] 180 mg PO TID PRN #30 cap PRN Reason: Gas Pain Referrals: GREER BOYD MD [Staff Physician] - 3-5 Days Time of Disposition: 11:02
[2022-04-22 11:14] VITALS: BP 128/72
== END 2022-04-22 11:14 | disposition home or self-care (01) ==
LOC: ED 22:19
DX: R14.3 Flatulence (principal); F17.200 Nicotine dependence, unspecified, uncomplicated
CPT/HCPCS: 99283